=== PATIENT | male | born 1960 | race Caucasian/White ===

== ENCOUNTER 2016-05-02 10:01 | Day surgery (SDC) | payer BC ==
[~2016-05-02 10:01] MED LIST: ACETAMINOPHEN 500 MG TABLET PO PRN; HYDROmorphone HCL 2 MG/ML VIAL IV PRN; MAG HYDROX/ALUMINUM HYD/SIMETH 30 ML UDC PO PRN; MAGNESIUM HYDROXIDE 30 ML UDC PO PRN; ONDANSETRON HCL/PF 2 MG/ML VIAL IV PRN; PROMETHAZINE HCL 25 MG in DEXTROSE 5 % IN WATER 50 ML IV PRN; RINGERS SOLUTION,LACTATED 1,000 ML IV PRN; ZOLPIDEM TARTRATE 5 MG TABLET PO PRN; ceFAZolin SODIUM 1 GM VIAL IV PRN; diphenhydrAMINE HCL 50 MG/ML VIAL IV PRN; oxyCODONE HCL/ACETAMINOPHEN 1 TAB TABLET PO PRN
--- OUTSIDE RECORDS SUMMARY | 2016-05-02 10:06 | XMS REPORT | Continuity of Care Document ---
:1960 Author Organization [facility] ([facility]) Address [address] [place] [address] Phone [phone] Care Team Providers Name Role Phone Niko Stewart Primary Care Provider [phone] Source Comments This disclosure is being made pursuant to the Care Everywhere program, applicable federal and state laws, and may not contain all informaitonavailable regarding this patient.[facility] ([facility]) Active Allergies and Adverse Reactions Allergen Noted Date Severity Reactions Comments Codeine 04/10/2011 Nausea & Vomiting Penicillin G 04/10/2011 Rash Current Medications Prescription Sig. Disp. Refills Start Date End Date Status multivitamin tablet Take 1 Tab by Active mouth daily. atorvastatin (LIPITOR) Take 20 mg by Active 20 mg tablet mouth every evening. metoPROLol succinate Take 100 mg by Active 100 mg XL tablet mouth daily. calcium carbonate (500 Take 1 Tab by Active mg Ca) 1250 mg mouth daily. -vitamin D 200 unit per tablet gabapentin 300 mg Take 300 mg by Active capsule mouth 3 times daily. traMADol 50 mg tablet Take 1 Tab by 80 Tab 1 10/17/2013 Active mouth every 6 hours as needed for Pain. Indications: PAIN amLODIPine 5 mg tablet Take 5 mg by Active mouth daily. acyclovir 200 mg Take 200 mg by Active capsule mouth as needed. VIAGRA 100 mg tablet Take 100 mg by 2 01/26/2016 Active mouth as needed. SUPREP 17.5-3.13-1.6 take as directed 0 2016 Active gram oral solution for 1 day celecoxib 100 mg Take 1 capsule 60 capsule 1 01/30/2016 Active capsule (100 mg total) by mouth 2 times daily. 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
[2016-05-02] MEDS ORDERED: RINGERS SOLUTION,LACTATED 1,000 ML IV ONE (10:35)
[2016-05-02] MEDS ORDERED: BUPIVACAINE HCL 50 ML VIAL IJ ONE (11:22)
[2016-05-02 14:57] VITALS: BP 130/76
[2016-05-02] MEDS ORDERED: SENNOSIDES/DOCUSATE SODIUM 1 TAB TABLET PO SCH (21:00)
== END 2016-05-02 10:02 | disposition home or self-care (01) ==
LOC: AMB 10:01
PROVIDERS: ATTEND Orthopaedic Surgery
PROC: 0QBN0ZZ Excision of Right Metatarsal, Open Approach (ICD-10-PCS; principal; 2016-05-02 11:35)
DX: M21.621 Bunionette of right foot (principal); I10 Essential (primary) hypertension; E78.5 Hyperlipidemia, unspecified; Z87.891 Personal history of nicotine dependence; Z68.33 Body mass index [BMI] 33.0-33.9, adult

== ENCOUNTER 2016-05-02 23:00 | Emergency (ER) | payer BC ==
--- NOTE | 2016-05-03 00:31 | ERNOTE ---
Allergy Symptoms - ER Date of Service: 05/02/16 Presenting Symptoms: other - nausea Time Seen by Provider: 05/03/16 00:30 Source: patient Exam Limitations: no limitations Immunizations: IMMUNIZATION HX History of Influenza Vaccine No Hx Pneumococcal Vaccination No Allergies/Adverse Reactions: Allergies penicillin G Allergy (Mild, Verified 05/02/16 23:34) RASH sulfamethoxazole [From Bactrim] Allergy (Mild, Verified 05/02/16 23:34) GI UPSET, RASH, ESCOBAR trimethoprim [From Bactrim] Allergy (Mild, Verified 05/02/16 23:34) GI UPSET, RASH, ESCOBAR codeine Adverse Reaction (Mild, Verified 05/02/16 23:34) Nausea Home Medications: HOME MEDICATIONS Calcium Carbonate/Vitamin D3 [Calcium 600 + Vit D 400 Tablet] 1 each PO BID [Last Taken Unknown] Gabapentin [Neurontin] 300 mg PO TID 01/30/16 [Last Taken Unknown] Metoprolol Succinate [Toprol Xl] 100 mg PO DAILY 01/30/16 [Last Taken Unknown] Multivitamins [Multivitamin Ashley] 1 cap PO DAILY 01/30/16 [Last Taken Unknown] Sildenafil Citrate [Viagra] 100 mg PO DAILY PRN 01/30/16 [Last Taken Unknown] amLODIPine BESYLATE [Norvasc] 5 mg PO DAILY 01/30/16 [Last Taken Unknown] traMADol HCL [Ultram] 50 mg PO TID PRN 01/30/16 [Last Taken Unknown] Acyclovir [Zovirax] 200 mg PO PRN 02/13/16 [Last Taken Unknown] Atorvastatin Calcium [Lipitor] 20 mg PO DAILY 04/25/16 [Last Taken Unknown] Celecoxib [Celebrex] 100 mg PO BID 04/25/16 [Last Taken Unknown] Oxycodone HCl/Acetaminophen [Percocet 5-325 mg Tablet] 1 each PO Q4H PRN [Last Taken 05/02/16 16:00 2 tab] - Pain Score Pain Score #1 Pain Score: 0 - History of Present Illness Narrative: Pt presents with c/o nausea and nervousness after taking 2 doses of 2 tablets of hydrocodone for post op right foot pain. Pt states he thinks he developed an allergic reaction. Review of Systems - Review of Systems Constitutional: Present: See HPI, diaphoresis. Absent: fever, chills, weakness , fatigue, malaise EYE: Present: no symptoms reported ENT: Present: no symptoms reported Respiratory: Present: no symptoms reported. Absent: shortness of breath, cough , wheezing Cardiology: Present: no symptoms reported Gastrointestinal/Abdominal: Present: no symptoms reported Genitourinary: Present: no symptoms reported Musculoskeletal: Present: no symptoms reported Neurological: Present: no symptoms reported Endocrine: Present: no symptoms reported Hematologic/Lymphatic: Present: no symptoms reported Psych: Present: no symptoms reported - Patient's Past Medical History Patient History - Medical: Other Patient History - Cardiac/Respiratory: Hypertension, Hyperlipidemia Patient History - Cancer: Skin, Surgical Treatment Patient History - Surgical Procedures: Total Hip Replacement, Total Knee Replacement, T & A, Other Patient History - Other: None - Family History Brother Family History - Medical: No pertinent hx, Other Family History - Cardiac/Respiratory: Hyperlipidemia Family History - Cancer: No pertinent family hx Father Family History - Medical: No pertinent hx, Other Family History - Cardiac/Respiratory: Hyperlipidemia, Other Family History - Cancer: No pertinent family hx Grandfather-Paternal Family History - Medical: , No pertinent hx Family History - Cardiac/Respiratory: CVA/Stroke Family History - Cancer: No pertinent family hx Mother Family History - Medical: , Other Family History - Cardiac/Respiratory: No pertinent hx Family History - Cancer: Stomach Sister Family History - Medical: No pertinent hx, Other Family History - Cardiac/Respiratory: No pertinent hx Family History - Cancer: No pertinent family hx - Social History Living Situations: home Abuse History: No History of abuse Psych History: No pertinent hx Smoking Status: Former smoker Do you dip or chew tobacco: No Alcohol Use: occasionally Drug Use: none - Immunizations Hx Pneumococcal Vaccination: No History of Influenza Vaccine: No Physical Exam - Physical Exam General Appearance: Present: wd/wn, alert, no apparent distress, other - anxious Ears, Nose, Throat: Present: normal ENT inspection, hearing grossly normal Neck: Present: normal inspection, nontender. Absent: lymphadenopathy (R), lymphadenopathy (L) Respiratory: Present: no respiratory distress, normal breath sounds, no accessory muscle use, chest nontender, lungs clear Cardiovascular/Chest: Present: regular rate, rhythm, no murmur, normal peripheral pulses Gastrointestinal/Abdominal: Present: normal bowel sounds, nontender, nondistended, soft, no organomegaly Neurological Exam: Present: alert, oriented Skin Exam: Present: normal color, warm/dry, diaphoresis. Absent: skin rash ED Progress - Vital Signs Patient's Vital Signs:: I have reviewed the patient's vital signs. Vital Signs: Vital Signs 05/02/16 23:29 Temperature 36.6 C Pulse Rate 76 Respiratory 18 Rate Blood Pressure 174/80 O2 Sat by Pulse 97 Oximetry - Progress/Reassessment Chief Complaint: Allergic Reaction Progress:: Improved Departure Clinical Impression: Adverse reaction to drug - Departure Disposition: Home self-care Condition: Good Instructions: Basics of Medicine Management
[2016-05-03] MEDS ORDERED: LORazepam 1 MG TABLET PO ONE (00:35)
[2016-05-03] MEDS ORDERED: LORazepam 1 MG TABLET ONE (00:48)
[2016-05-03 00:49] LABS: Hematocrit 43.8 % (42.0-52.0); Hemoglobin 14.9 gm/dL (13.5-18.0); Mean Cell Volume 90.5 fl (78-100); Mean Corpuscular Hemoglobin 30.8 pg (27-31); Mean Platelet Volume 8.7 fl (6.0-9.5); Neutrophil # 3.6 K/mm3 (1.3-6.0); Platelet Count 135 K/mm3 (150-450); Red Blood Count 4.84 M/mm3 (4.7-6.0); Red Cell Distribution Width 13.9 % (11.5-14.0); White Blood Count 5.4 K/mm3 (4.0-10.5)
[2016-05-03 01:07] LABS: Anion Gap 14.5 mmol/L (6.8-13.8); BUN/Creatinine Ratio 16.7 (9.0-21.6); Blood Urea Nitrogen 10 mg/dL (6-23); Calcium * 9.2 mg/dL (7.9-10.9); Carbon Dioxide 26.2 mmol/L (24-32.6); Chloride 99 mmol/L (97-106); Estimated Creat Clear 138.6; Glucose * 109 mg/dL (70-110); Potassium 3.7 mmol/L (3.4-4.6); Sodium 136 mmol/L (132-142)
[2016-05-03 01:08] LABS: Troponin I Less than 0.017 ng/ml (0.00-0.10)
--- OUTSIDE RECORDS SUMMARY | 2016-05-03 01:08 | XMS REPORT | Continuity of Care Document ---
:1960 Author Organization [facility] ([facility]) Address [address] [place] [address] Phone [phone] Care Team Providers Name Role Phone Niko Stewart Primary Care Provider [phone] Source Comments This disclosure is being made pursuant to the Care Everywhere program, applicable federal and state laws, and may not contain all informaitonavailable regarding this patient.[facility] ([facility]) Active Allergies and Adverse Reactions Allergen [...] Specialty Providers Description 02/12/2016 Telephone Orthopaedic Colin Bautsita MD 02/11/2016 Telephone Orthopaedic Rosita Caruso ARNP [...] 1.803 m (5' 11") 01/30/2016 8: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
[2016-05-03 02:41] VITALS: BP 140/78
== END 2016-05-03 02:40 | disposition home or self-care (01) ==
LOC: ER 23:00
DX: R11.2 Nausea with vomiting, unspecified (principal); T40.2X5A Adverse effect of other opioids, initial encounter; Z87.891 Personal history of nicotine dependence

== ENCOUNTER 2020-01-31 16:38 | Observation (INO) ==
[2020-01-31 17:49] LABS: Hemoglobin 13.1 gm/dL (13.5-18.0); Mean Corpuscular Hemoglobin 33.4 pg (27-31); Mean Corpuscular Hgb Conc 32.8 g/dl (32-36); Mean Platelet Volume 11.6 fl (8-11.3); Neutrophil # 5.4 K/mm3 (1.3-6.0); Neutrophil % 65.9 % (42-75.0); Platelet Count 212 K/mm3 (150-450); Red Blood Count 3.92 M/mm3 (4.7-6.0); Red Cell Distribution Width 13.2 % (11.5-14.0); White Blood Count 8.2 K/mm3 (4.0-10.5)
[2020-01-31 17:57] LABS: ALT 59 U/L (19-67); AST 104 U/L (0-48); Alkaline Phosphatase * 133 U/L (50-170); Anion Gap 11.3 mmol/L (6.8-13.8); BUN/Creatinine Ratio 6.3 (9.0-21.6); Bilirubin, Total 2.3 mg/dL (0.0-1.1); Blood Urea Nitrogen 5 mg/dL (6-23); Ca. Corrected For Albumin 9.4 mg/dL (8.4-10.2); Calcium * 8.9 mg/dL (7.9-10.9); Carbon Dioxide 27.9 mmol/L (24-32.6); Chloride 96 mmol/L (97-106); Glucose * 104 mg/dL (70-110); Potassium 3.2 mmol/L (3.4-4.6); Sodium 132 mmol/L (132-142); Total Protein 7.4 gm/dL (6.2-8.2)
[2020-01-31] MEDS ORDERED: NORMAL SALINE 1,000 ML IV ONE (18:22)
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
[2020-01-31 18:42] LABS: Urine Bilirubin 3 mg/dl (NEGATIVE); Urine Blood Negative /ul (NEGATIVE); Urine Ketone Negative (NEGATIVE); Urine Nitrite Negative (NEGATIVE); Urine Protein Negative (NEGATIVE); Urine Urobilinogen >=8.0 EU/dl (NORMAL); Urine pH 6.5 pH (5.0-7.0)
[2020-01-31 19:18] LABS: Urine Barbiturate Negative (NEGATIVE); Urine Benzodiazepines Negative (NEGATIVE); Urine Opiates Negative (NEGATIVE); Urine PCP Negative (NEGATIVE); Urine THC Negative (NEGATIVE)
[2020-01-31 19:26] LABS: Urine Appearance Clear (CLEAR); Urine Bacteria 1+; Urine Color Amber; Urine Mucus Few - 1+; Urine RBC TRACE /hpf (0-5); Urine WBC 0-5 /hpf (0-5)
[2020-01-31 19:27] LABS: Cocaine Ur Negative (NEGATIVE)
[2020-01-31 19:40] LABS: Amylase * 175 U/L (25-115); Lipase 148 U/L (73-393)
[2020-01-31] MEDS: NORMAL SALINE 1,000 ML IV PRN (20:40)
[2020-02-01] MEDS: NORMAL SALINE 1,000 ML IV PRN (04:35)
--- NOTE | 2020-02-01 09:00 | HP ---
Chief Complaint - Chief Complaint Date of Service: 02/01/20 Time of Service: 08:49 Chief Complaint: Falls, weakness, balance problems History of Present Illness: Stephan is a 60 yo male that presented to the [facility] ER after a fall and pain in has hands after the fall. He reports frequent falls over the past month. He is unsure the cause and reports his legs get weak and he loses balance. He denies vertigo. He reports history of drinking but stopped a month ago. He denies tremors. He denies confusion this morning, although there are reports that he was confused in the ER and not able to answer direct questions. This morning he feels at his baseline. Medical History (Last Reviewed 01/31/20 @ 21:04 by Jazmin Morfin RN) Lumbar disc disease (Chronic) Onset Date: Unknown Hypertension (Chronic) Onset Date: Unknown Hyperlipidemia (Chronic) Onset Date: Unknown Shoulder pain, right Onset Date: ~2017 Back pain Onset Date: ~2009 Degenerative joint disease of knee, right Onset Date: Unknown Urinary retention Onset Date: ~2011 Surgical History: Surgical History (Last Reviewed 01/31/20 @ 21:05 by Jazmin Morfin RN) H/O arthroscopic knee surgery Onset Date: ~1979 right H/O colonoscopy Onset Date: ~12/2015 Dr Lopez-serrated adenoma, hyperplastic polyp. Recheck in 3 years. H/O repair of rotator cuff Onset Date: ~2003 Dr Jaimes-left H/O toe surgery Onset Date: ~2016 Dr Daniel-right 5th toe cheilectomy H/O total hip arthroplasty Onset Date: Unknown 2001-Dr Torrez-left 2013-Dr Gongora at [facility]-Right H/O wisdom tooth extraction Onset Date: Unknown History of carpal tunnel release Onset Date: Unknown right History of incision and drainage Onset Date: ~2012 Dr Good-abscess left mid back History of tonsillectomy Onset Date: Unknown S/P epidural steroid injection Onset Date: ~2012 2011 L5-S1 2013 C6-C7 Family History: Family History (Last Reviewed 01/31/20 @ 21:05 by Jazmin Morfin RN) Father Hyperlipemia H/O partial resection of colon Brother Hyperlipemia Mother Cancer H/O partial resection of colon Grandfather CVA (cerebral vascular accident) Social History: (Last Reviewed 01/31/20 @ 21:05 by Jazmin Morfin RN) Social History: adopted: No foster care: No correction: No Marital status: Single lives independently: Yes household members: none caregiver/support person: No current occupational status: retired Highest level of school completed/degree received: high school graduate Service: No Tobacco: Smoking Status: Never smoker Alcohol: alcohol intake: former alcohol intake frequency: a few times a week Substance Use: substance use type: does not use Dietary Habits: caffeine: Yes caffeine comment: somedays Type: carbonated beverages Review Of Systems (GEN) - Review of Systems Generalized/Overall Review: Present: Weakness. Absent: Chills, Fever EENTM: Present: No Symptoms Reported Respiratory: Absent: Cough, Shortness of Breath Cardiac: Absent: Chest Pain, Edema, Palpitations Abdominal: Absent: Nausea, Vomiting Genitourinary: Absent: Burning, Frequency Musculoskeletal: Present: Joint Pain Neurological: Present: Weakness, Other - balance difficulty Skin: Present: No Symptoms Reported Immunizations: IMMUNIZATION HX Immunizations Up to Date Yes History of Influenza Vaccine Yes Hx Pneumococcal Vaccination No Allergies/Adverse Reactions: Allergies Allergy/AdvReac Type Severity Reaction Status Date / Time penicillin G Allergy Mild RASH Verified 01/31/20 21:05 sulfamethoxazole Allergy Mild GI UPSET, Verified 01/31/20 21:05 [From Bactrim] RASH, ESCOBAR codeine AdvReac Mild Nausea Verified 01/31/20 21:05 Home Medications: HOME MEDICATIONS Multivitamins [Multivitamin Ashley] 1 cap PO DAILY 01/30/16 [Last Taken Unknown] Acyclovir [Zovirax] 200 mg PO PRN 02/13/16 [Last Taken Unknown] amlodipine 5 mg tablet 5 mg PO DAILY #90 tab 08/24/18 [Last Taken Unknown] atorvastatin 20 mg tablet 20 mg PO DAILY #90 tab 08/24/18 [Last Taken Unknown] diclofenac sodium 50 mg tablet,delayed release 50 mg PO BID #60 tab 08/24/18 [Last Taken Unknown] gabapentin 300 mg capsule 300 mg PO TID #90 cap 08/24/18 [Last Taken Unknown] metoprolol succinate 100 mg tablet,extended release 24 hr 100 mg PO DAILY #90 tab 08/24/18 [Last Taken Unknown] sildenafil 100 mg tablet 100 mg PO DAILY PRN #10 tab 08/24/18 [Last Taken Unknown] azelastine 0.05 % eye drops 1 drp OP BID PRN #6 ml 12/02/18 [Last Taken Unknown] Exam - Exam Vital Signs: Vital Signs - Last Taken Temp 36.7 C 02/01/20 06:23 Pulse 84 02/01/20 06:23 Resp 20 02/01/20 06:23 BP 143/86 02/01/20 06:23 Pulse Ox 95 02/01/20 06:23 Constitutional: Present: Alert, Oriented x3, Cooperative, No distress ENT Exam: Present: hearing grossly normal Eye Exam: bilateral eye: normal inspection Respiratory: Present: lungs clear, normal breath sounds Cardiovascular/Chest: Present: regular rate, rhythm, no chest tenderness Peripheral Pulses: radial (R): 2+, radial (L): 2+ Abdomen: Present: Normal bowel sounds, soft, nontender, nondistended Skin Exam: Present: normal color, warm/dry, no cyanosis Neurologic: Present: fire medic II-XII nml as tested, no motor/sensory deficits, alert, normal mood/affect, oriented x 3 Appearance: Present: appropriate appearance, appropriate insight Eye contact: Present: cooperative, good eye contact, normal speech Thoughts: Present: normal thought pattern, no apparent hallucination Diagnostic Studies: Abnormal Lab Results 01/31/20 01/31/20 01/31/20 Range/Units 17:36 17:36 17:36 RBC 3.92 L (4.7-6.0) M/mm3 Hgb 13.1 L (13.5-18.0) gm/dL Hct 40.0 L (42.0-52.0) % MCV 102.0 H (78-100) fl MCH 33.4 H (27-31) pg MPV 11.6 H (8-11.3) fl Monocytes % 10.0 H (0.0-9) % Basophils % 1.7 H (0.0-1.0) % Potassium 3.2 L (3.4-4.6) mmol/L Chloride 96 L (97-106) mmol/L BUN 5 L (6-23) mg/dL BUN/Creatinine Ratio 6.3 L (9.0-21.6) Lactic Acid, Venous 3.7 H* (0.4-2.0) mmol/L Total Bilirubin 2.3 H (0.0-1.1) mg/dL AST 104 H (0-48) U/L Albumin 3.0 L (3.4-5.0) gm/dl Amylase (25-115) U/L Urine Bilirubin (NEGATIVE) mg/dl Urine Ictotest (NEGATIVE) Urine Urobilinogen (NORMAL) EU/dl Urine Bacteria (NONE) Urine Mucus (NONE) 01/31/20 01/31/20 01/31/20 Range/Units 17:36 18:30 20:30 RBC (4.7-6.0) M/mm3 Hgb (13.5-18.0) gm/dL Hct (42.0-52.0) % MCV (78-100) fl MCH (27-31) pg MPV (8-11.3) fl Monocytes % (0.0-9) % Basophils % (0.0-1.0) % Potassium (3.4-4.6) mmol/L Chloride (97-106) mmol/L BUN (6-23) mg/dL BUN/Creatinine Ratio (9.0-21.6) Lactic Acid, Venous 2.5 H* (0.4-2.0) mmol/L Total Bilirubin (0.0-1.1) mg/dL AST (0-48) U/L Albumin (3.4-5.0) gm/dl Amylase 175 H (25-115) U/L Urine Bilirubin 3 H (NEGATIVE) mg/dl Urine Ictotest Positive H (NEGATIVE) Urine Urobilinogen >=8.0 H (NORMAL) EU/dl Urine Bacteria 1+ H (NONE) Urine Mucus Few - 1+ H (NONE) Laboratory Results WBC 8.2 K/mm3 (4.0-10.5) 01/31/20 17:36 RBC 3.92 M/mm3 (4.7-6.0) L 01/31/20 17:36 Hgb 13.1 gm/dL (13.5-18.0) L 01/31/20 17:36 Hct 40.0 % (42.0-52.0) L 01/31/20 17:36 MCV 102.0 fl (78-100) H 01/31/20 17:36 MCH 33.4 pg (27-31) H 01/31/20 17:36 MCHC 32.8 g/dl (32-36) 01/31/20 17:36 RDW 13.2 % (11.5-14.0) 01/31/20 17:36 Plt Count 212 K/mm3 (150-450) 01/31/20 17:36 MPV 11.6 fl (8-11.3) H 01/31/20 17:36 Immature Gran % (Auto) 0.40 % (0.001-0.429) 01/31/20 17:36 Immature Gran # (Auto) 0.03 K/mm3 (0.000-0.0310) 01/31/20 17:36 Neutrophils % 65.9 % (42-75.0) 01/31/20 17:36 Lymphocytes % 21.5 % (20-51) 01/31/20 17:36 Monocytes % 10.0 % (0.0-9) H 01/31/20 17:36 Eosinophils % 0.5 % (0.0-3.0) 01/31/20 17:36 Basophils % 1.7 % (0.0-1.0) H 01/31/20 17:36 Nucleated RBC % 0.0 k/mm3 (0-1) 01/31/20 17:36 Neutrophils # 5.4 K/mm3 (1.3-6.0) 01/31/20 17:36 Lymphocytes # 1.77 k/mm3 (1.5-3.5) 01/31/20 17:36 Monocytes # 0.8 k/mm3 (0.0-1.0) 01/31/20 17:36 Eosinophils # 0.0 k/mm3 (0.0-0.7) 01/31/20 17:36 Absolute Basophils 0.1 k/mm3 (0.0-0.1) 01/31/20 17:36 Sodium 132 mmol/L (132-142) 01/31/20 17:36 Plasma Sodium 132 mmol/L (130-142) 01/31/20 17:36 Potassium 3.2 mmol/L (3.4-4.6) L 01/31/20 17:36 Chloride 96 mmol/L (97-106) L 01/31/20 17:36 Carbon Dioxide 27.9 mmol/L (24-32.6) 01/31/20 17:36 Anion Gap 11.3 mmol/L (6.8-13.8) 01/31/20 17:36 BUN 5 mg/dL (6-23) L 01/31/20 17:36 Creatinine 0.79 mg/dL (0.4-1.4) 01/31/20 17:36 Est GFR (Non-Af Amer) 106 mL/min (60-130) 01/31/20 17:36 BUN/Creatinine Ratio 6.3 (9.0-21.6) L 01/31/20 17:36 Random Glucose 104 mg/dL (70-110) 01/31/20 17:36 Lactic Acid, Venous 2.5 mmol/L (0.4-2.0) H* 01/31/20 20:30 Calcium 8.9 mg/dL (7.9-10.9) 01/31/20 17:36 Calcium Adj for Albumin 9.4 mg/dL (8.4-10.2) 01/31/20 17:36 Total Bilirubin 2.3 mg/dL (0.0-1.1) H 01/31/20 17:36 AST 104 U/L (0-48) H 01/31/20 17:36 ALT 59 U/L (19-67) 01/31/20 17:36 Alkaline Phosphatase 133 U/L (50-170) 01/31/20 17:36 Ammonia Less than 17.0 mcmol/L (11-35) 01/31/20 20:30 Total Protein 7.4 gm/dL (6.2-8.2) 01/31/20 17:36 Albumin 3.0 gm/dl (3.4-5.0) L 01/31/20 17:36 Amylase 175 U/L (25-115) H 01/31/20 17:36 Lipase 148 U/L (73-393) 01/31/20 17:36 Urine Color Farideh 01/31/20 18:30 Urine Appearance Clear (CLEAR) 01/31/20 18:30 Urine pH 6.5 pH (5.0-7.0) 01/31/20 18:30 Ur Specific [place] 1.010 SP.GR. (1.005-1.030) 01/31/20 18:30 Urine Protein Negative mg/dL (NEGATIVE) 01/31/20 18:30 Urine Glucose (UA) Negative mg/dL (NEGATIVE) 01/31/20 18:30 Urine Ketones Negative mg/dL (NEGATIVE) 01/31/20 18:30 Urine Blood Negative /ul (NEGATIVE) 01/31/20 18:30 Urine Nitrate Negative (NEGATIVE) 01/31/20 18:30 Urine Bilirubin 3 mg/dl (NEGATIVE) H 01/31/20 18:30 Urine Ictotest Positive (NEGATIVE) H 01/31/20 18:30 Urine Urobilinogen >=8.0 EU/dl (NORMAL) H 01/31/20 18:30 Ur Leukocyte Esterase Negative /ul (NEGATIVE) 01/31/20 18:30 Urine RBC Trace /hpf (0-5) 01/31/20 18:30 Urine WBC 0-5 /hpf (0-5) 01/31/20 18:30 Ur Epithelial Cells 0-5 /hpf (0-5) 01/31/20 18:30 Urine Bacteria 1+ (NONE) H 01/31/20 18:30 Urine Mucus Few - 1+ (NONE) H 01/31/20 18:30 Urine Culture Comments No culture indicated 01/31/20 18:30 Urine Opiates Screen Negative (NEGATIVE) 01/31/20 18:30 Barbiturate Screen Negative (NEGATIVE) 01/31/20 18:30 Ur Phencyclidine Scrn Negative (NEGATIVE) 01/31/20 18:30 Urine Amphetamine Negative (NEGATIVE) 01/31/20 18:30 U Benzodiazepines Scrn Negative (NEGATIVE) 01/31/20 18:30 Urine Cocaine Screen Negative (NEGATIVE) 01/31/20 18:30 Urine Marijuana (THC) Negative (NEGATIVE) 01/31/20 18:30 Ethyl Alcohol Less than 3.0 mg/dL (0.0-10.0) 01/31/20 17:36 SARS-CoV-2 (PCR) Not detected (NotDetected) 01/31/20 18:55 Assessment/Plan - Narrative Narrative: Stephan is a 60 yo male who presented with altered mentation, weakness, and balance difficulty. Unclear etiology. Head CT was negative. Labs were unremarkable with the exception of elevated lactate. No source of infection present, no fever, and no leukocytosis. He has a history of alcohol but has been sober for over a month. This morning he appears to have mentation that is at his baseline. Will consult PT to evaluate his gait and balance. Will evaluate with Brain MRI to investigate his weakness, balance difficulty, and episode of alt ered mentation. He will be admitted to observation at this time. If cleared by PT and brain MRI ok he may be able to be discharged later today. - Assessment/Plan (1) Altered mental status Problem: Resolved Qualifiers: Altered mental status type: disorientation Qualified Code(s): R41.0 - D isorientation, unspecified (2) Lactic acidosis Problem: Acute (3) Frequent falls Problem: Acute
--- NOTE | 2020-02-01 16:36 | DS ---
(1) Altered mental status Problem: Resolved Qualifiers: Altered mental status type: disorientation Qualified Code(s): R41.0 - Disorientation, unspecified (2) Frequent falls Problem: Acute (3) Lower extremity weakness Problem: Acute Qualifiers: Laterality: bilateral Qualified Code(s): R29.898 - Other symptoms and signs involving the musculoskeletal system (4) Balance problem Problem: Acute Date of Discharge:: 02/01/20 Hospital Course: Stephan is a 60 yo male that presented with frequent falls, lower extremity weakness, and confusion. The confusion resolved overnight. He was evaluated with labs, head CT, and brain MRI. Imaging of the head showed possible normal pressure hydrocephalus, but this could also just be from atrophy. There is no evidence of infection. Today he has normal mentation. He was evaluated by PT who recommend outpatient PT and the use of a walker. He was give a walker at discharge. He will follow up with his primary care provider in 1-2 weeks. I would not recommend therapeutic lumbar puncture for hydrocephalus at this point, but if therapy does not help and he continues to have episodes of confusion and gait difficulty it could be considered. Procedures Performed: none Results and Findings: Lab Pending Results 01/31/20 17:36: WBC 8.2, RBC 3.92 L, Hgb 13.1 L, Hct 40.0 L, MCV 102.0 H, MCH 33.4 H, MCHC 32.8, RDW 13.2, Plt Count 212, MPV 11.6 H, Immature Gran % (Auto) 0.40, Immature Gran # (Auto) 0.03, Neutrophils % 65.9, Lymphocytes % 21.5, Monocytes % 10.0 H, Eosinophils % 0.5, Basophils % 1.7 H, Nucleated RBC % 0.0, Neutrophils # 5.4, Lymphocytes # 1.77, Monocytes # 0.8, Eosinophils # 0.0, Absolute Basophils 0.1 01/31/20 17:36: Sodium 132, Plasma Sodium 132, Potassium 3.2 L, Chloride 96 L, Carbon Dioxide 27.9, Anion Gap 11.3, BUN 5 L, Creatinine 0.79, Est GFR (Non-Af Amer) 106, BUN/Creatinine Ratio 6.3 L, Random Glucose 104, Calcium 8.9, Calcium Adj for Albumin 9.4, Total Bilirubin 2.3 H, AST 104 H, ALT 59, Alkaline Phosphatase 133, Total Protein 7.4, Albumin 3.0 L, Ethyl Alcohol Less than 3.0 01/31/20 17:36: Lactic Acid, Venous 3.7 H* 01/31/20 17:36: Amylase 175 H, Lipase 148 01/31/20 18:30: Urine Color Farideh, Urine Appearance Clear, Urine pH 6.5, Ur Specific [place] 1.010, Urine Protein Negative, Urine Glucose (UA) Negative, Urine Ketones Negative, Urine Blood Negative, Urine Nitrate Negative, Urine Bilirubin 3 H, Urine Ictotest Positive H, Urine Urobilinogen >=8.0 H, Ur Leukocyte Esterase Negative, Urine RBC Trace, Urine WBC 0-5, Ur Epithelial Cells 0-5, Urine Bacteria 1+ H, Urine Mucus Few - 1+ H, Urine Culture Comments No culture indicated 01/31/20 18:30: Urine Opiates Screen Negative, Barbiturate Screen Negative, Ur Phencyclidine Scrn Negative, Urine Amphetamine Negative, U Benzodiazepines Scrn Negative, Urine Cocaine Screen Negative, Urine Marijuana (THC) Negative 01/31/20 18:55: SARS-CoV-2 (PCR) Not detected 01/31/20 20:30: Lactic Acid, Venous 2.5 H* 01/31/20 20:30: Ammonia Less than 17.0 Discharge Location: Home Disposition: Home self-care Condition: Good Discharge Activity: Activity as tolerated Discharge Diet: General/regular food Referrals: Bethany Henson FNP [Primary Care Provider] - One Week Problem Oriented Discharge Instructions to Patient/Family: Deconditioning Complete Home Medications List: Complete Home Medication List: Multivitamins [Multivitamin Ashley] 1 cap PO DAILY 01/30/16 Acyclovir [Zovirax] 200 mg PO PRN 02/13/16 amlodipine 5 mg tablet 5 mg PO DAILY #90 tab 08/24/18 atorvastatin 20 mg tablet 20 mg PO DAILY #90 tab 08/24/18 diclofenac sodium 50 mg tablet,delayed release 50 mg PO BID #60 tab 08/24/18 gabapentin 300 mg capsule 300 mg PO TID #90 cap 08/24/18 metoprolol succinate 100 mg tablet,extended release 24 hr 100 mg PO DAILY #90 tab 08/24/18 sildenafil 100 mg tablet 100 mg PO DAILY PRN #10 tab 06/11/19 azelastine 0.05 % eye drops 1 drp OP BID PRN #6 ml 12/02/18
[2020-02-01 17:43] VITALS: BP 132/87
== END 2020-02-01 17:13 | disposition home or self-care (01) ==
LOC: MS 16:38 → ER 16:38 → MS 20:45
PROVIDERS: ADMIT Family Medicine; ATTEND Family Medicine

== ENCOUNTER 2020-07-22 15:17 | Inpatient (IN) ==
[2020-07-22] MEDS ORDERED: LORazepam 2 MG/ML DISP.SYRIN IV ONE ×2 (15:43→16:38)
[2020-07-22] MEDS ORDERED: MULTIVIT INFUSN,ADULT 4,VIT K 10 ML, THIAMINE HCL 100 MG in DEXTROSE 5 % IN WATER 1,000 ML IV SCH ×3 (15:45)
[2020-07-22] MEDS ORDERED: NORMAL SALINE 1,000 ML IV ONE ×3 (15:46→19:03)
[2020-07-22 16:06] LABS: Hematocrit 39.9 % (42.0-52.0); Hemoglobin 13.1 gm/dL (13.5-18.0); Mean Corpuscular Hemoglobin 32.5 pg (27-31); Mean Corpuscular Hgb Conc 32.8 g/dl (32-36); Mean Platelet Volume 11.6 fl (8-11.3); Neutrophil # 2.9 K/mm3 (1.3-6.0); Neutrophil % 68.2 % (42-75.0); Red Blood Count 4.03 M/mm3 (4.7-6.0); Red Cell Distribution Width 14.5 % (11.5-14.0); White Blood Count 4.3 K/mm3 (4.0-10.5)
[2020-07-22 16:24] LABS: Troponin I Less than 0.017 ng/mL (0.00-0.10)
[2020-07-22 16:26] LABS: ALT 43 U/L (19-67); AST 166 U/L (0-48); Albumin * 3.3 gm/dl (3.4-5.0); Alkaline Phosphatase * 229 U/L (50-170); Anion Gap 25.2 mmol/L (6.8-13.8); BUN/Creatinine Ratio 3.4 (9.0-21.6); Bilirubin, Total 5.1 mg/dL (0.0-1.1); Blood Urea Nitrogen 4 mg/dL (6-23); Ca. Corrected For Albumin 8.8 mg/dL (8.4-10.2); Calcium * 8.6 mg/dL (7.9-10.9); Carbon Dioxide 17.2 mmol/L (24-32.6); Chloride 96 mmol/L (97-106); Glucose * 109 mg/dL (70-110); Lipase 82 U/L (73-393); Magnesium 1.2 mg/dL (1.2-2.8); Potassium 3.4 mmol/L (3.4-4.6); Prothrombin Time (Patient) 16.4 Seconds (9.1-10.7); Sodium 135 mmol/L (132-142); TSH * 9.282 uIU/mL (0.358-3.74); Total Protein 8.5 gm/dL (6.2-8.2)
[2020-07-22 16:28] LABS: INR 1.61 INR (0.92-1.08); Partial Thrombolplastin Time 31.7 Seconds (24-32)
[2020-07-22 16:34] LABS: Platelet Count 22 K/mm3 (150-450)
[2020-07-22 18:23] LABS: Urine Bilirubin 3 mg/dl (NEGATIVE); Urine Ketone 5 mg/dL (NEGATIVE); Urine Protein 30 mg/dL (NEGATIVE); Urine Urobilinogen >=8.0 EU/dl (NORMAL); Urine pH 8.5 pH (5.0-7.0)
--- NOTE | 2020-07-22 18:30 | ERNOTE ---
Neuro HPI ER Record Date of Service: 07/22/20 Presenting Symptoms: weakness Time Seen by Provider: 07/22/20 15:22 Source: patient, EMS Exam Limitations: clinical condition Immunizations: IMMUNIZATION HX Immunizations Up to Date Yes History of Influenza Vaccine Yes Hx Pneumococcal Vaccination No Allergies/Adverse Reactions: Allergies Allergy/AdvReac Type Severity Reaction Status Date / Time penicillin G Allergy Mild RASH Verified 04/16/20 10:53 sulfamethoxazole Allergy Mild GI UPSET, Verified 04/16/20 10:53 [From Bactrim] RASH, ESCOBAR codeine AdvReac Mild Nausea Verified 04/16/20 10:53 Home Medications: HOME MEDICATIONS Multivitamins [Multivitamin Ashley] 1 cap PO DAILY 01/30/16 [Last Taken Unknown] amlodipine 5 mg tablet 5 mg PO DAILY #90 tab 08/24/18 [Last Taken Unknown] atorvastatin 20 mg tablet 20 mg PO DAILY #90 tab 08/24/18 [Last Taken Unknown] gabapentin 300 mg capsule 300 mg PO TID #90 cap 08/24/18 [Last Taken Unknown] metoprolol succinate 100 mg tablet,extended release 24 hr 100 mg PO DAILY #90 tab 08/24/18 [Last Taken Unknown] azelastine 0.05 % eye drops 1 drp OP BID PRN #6 ml 12/02/18 [Last Taken Unknown] Aspirin [Aspirin Chewable] 81 mg PO DAILY 07/22/20 [Last Taken Unknown] - History of Present Illness Narrative: Patient presents to the ED via EMS. Apparently he was having trouble getting into his truck, was noted to be weak and tremulous so EMS called. He seems somewhat confused and a good history is difficult to obtain. He stopped drinking 3 days ago and had been drinking daily, he is not very forthcoming about how much he was drinking prior to this. Clinically he has a syndrome c/w alcohol withdrawal. He has been having falls. Denies any pain. No vomiting. No CP or SOB, no abdominal pain. Onset: cannot confirm onset Severity: severe - Character of Deficits New weakness: Present: general (diffuse) Associated Symptoms: Reports: confused. Denies: chest pain, headache, seizure, decreased responsiveness Prior Treament: Denies: recently seen Review of Systems - Narrative Narrative: unable to obtain ROS in entirety due to patient condition - Review of Systems Respiratory: Absent: shortness of breath Cardiology: Absent: chest pain Gastrointestinal/Abdominal: Absent: abdominal pain Medical History (Last Reviewed 07/22/20 @ 18:22 by Catrachito Walsh MD) Post-traumatic osteoarthritis, left shoulder (Chronic) Possible rotator cuff pathology Fracture of metacarpal of right hand, closed (Acute) Lumbar disc disease (Chronic) Onset Date: Unknown Hypertension (Chronic) Onset Date: Unknown Hyperlipidemia (Chronic) Onset Date: Unknown Melanoma on chest Shoulder pain, right Onset Date: ~2017 Back pain Onset Date: ~2009 Degenerative joint disease of knee, right Onset Date: Unknown Urinary retention Onset Date: ~2011 Surgical History: Surgical History (Last Reviewed 07/22/20 @ 18:22 by Catrachito Walsh MD) History of arthroplasty of right knee H/O arthroscopic knee surgery Onset Date: ~1979 right H/O colonoscopy Onset Date: ~12/2015 Dr Lopez-serrated adenoma, hyperplastic polyp. Recheck in 3 years. H/O repair of rotator cuff Onset Date: ~2003 Dr Jaimes-left H/O toe surgery Onset Date: ~2016 Dr Daniel-right 5th toe cheilectomy H/O total hip arthroplasty Onset Date: Unknown 2001-Dr Torrez-left 2013-Dr Gongora at [facility]-Right H/O wisdom tooth extraction Onset Date: Unknown History of carpal tunnel release Onset Date: Unknown right History of incision and drainage Onset Date: ~2012 Dr Good-abscess left mid back History of tonsillectomy Onset Date: Unknown S/P epidural steroid injection Onset Date: ~2012 2011 L5-S1 2013 C6-C7 Family History: Family History (Last Reviewed 07/22/20 @ 18:22 by Catrachito Walsh MD) Father Hyperlipemia H/O partial resection of colon Brother Hyperlipemia Mother Cancer H/O partial resection of colon Grandfather CVA (cerebral vascular accident) Social History: (Last Reviewed 07/22/20 @ 18:23 by Catrachito Walsh MD) Social History: adopted: No foster care: No detention: No Marital status: Single lives independently: Yes household members: none caregiver/support person: No current occupational status: retired Highest level of school completed/degree received: high school graduate Service: No Tobacco: Smoking Status: Never smoker Alcohol: alcohol intake: former alcohol intake frequency: a few times a week Substance Use: substance use type: does not use Dietary Habits: caffeine: Yes caffeine comment: somedays Type: carbonated beverages Physical Exam - Physical Exam General Appearance: Present: alert, other - tremulous. Delia has completed CIWA and I agree, CIWA over 20. Head Exam: Present: normal inspection, no evidence of injury Eye Exam: Normal inspection: bilateral, PERRL: bilateral Ears, Nose, Throat: Present: dry mucous membranes. Absent: pharyngeal erythema Neck: Present: normal inspection, other - trachea midline Respiratory: Present: no respiratory distress, normal breath sounds, no accessory muscle use, lungs clear Cardiovascular/Chest: Present: normal peripheral pulses, tachycardia Gastrointestinal/Abdominal: Present: normal bowel sounds, nontender, soft Back Exam: Absent: CVA tenderness (R), CVA tenderness (L) Extremity Exam: Present: other - no tenderness or deformity Neurological Exam: Present: alert, no motor/sensory deficits, other - confused at times especially to past events. Not very forthcoming. No acute unilateral focal motor or sensory deficits. Skin Exam: Present: normal color, warm/dry Progress - Results and Orders Patient's Lab Results:: I have reviewed the patient's lab results. - Vital Signs Patient's Vital Signs:: I have reviewed the patient's vital signs. Vital Signs: Vital Signs 07/22/20 15:21 07/22/20 15:42 07/22/20 16:36 Pulse Rate 126 H 133 H 154 H Respiratory Rate 26 H 22 H Blood Pressure 120/78 141/79 O2 Sat by Pulse Oximetry 96 95 07/22/20 16:54 07/22/20 17:02 07/22/20 17:33 Pulse Rate 142 H 129 H 91 Respiratory Rate 15 17 17 Blood Pressure 107/77 125/71 154/81 H O2 Sat by Pulse Oximetry 92 L 95 96 - EKG EKG #1 EKG read: Interp. by me EKG Comments: Apparent sinus tachycardia rate 111. Non-specific ST/T wave changes, no STEMI noted. - X-Ray X-Ray #1 X-Ray: chest Interpretation: Interp. by me X-ray Comments: I personally reviewed CXR images as well as official radiology report - CT/Ultrasound CT/Ultrasound Narrative: I reviewed official radiology report for CT head. - Progress/Reassessment Chief Complaint: Altered Mental Status Progress Note-Subjective: 07/22/20 18:26 Patient given IV fluids, banana bag and repeated IV ativan. This helped his Sx significantly. He will need to be admitted to the hospital. I spoke with Dr Salinas who will admit. We discussed all labs/imaging/etc. He does have low platelets but no active bleeding. Elevated lactic acid likely from the withdrawal Sx, no other clear infectious source noted. Dr Salinas agreeable to admission. Patient agreeable and feels much improved. Departure Clinical Impression: Alcohol withdrawal syndrome, Thrombocytopenia, Elevated lactic acid level, Hyperbilirubinemia - Departure Disposition: Still a patient Condition: Fair
[2020-07-22 18:33] LABS: Cocaine Ur Negative (NEGATIVE); Urine Barbiturate Negative (NEGATIVE); Urine Benzodiazepines Negative (NEGATIVE); Urine Opiates Negative (NEGATIVE); Urine PCP Negative (NEGATIVE)
[2020-07-22 18:38] LABS: Urine Blood 10 /ul (NEGATIVE); Urine Color Dark Yellow; Urine Nitrite Positive (NEGATIVE)
[2020-07-22 18:39] LABS: Urine Appearance Slightly Cloudy (CLEAR); Urine Bacteria TRACE; Urine RBC 0-5 /hpf (0-5); Urine Renal Epithelial Cell Few - 1+ /hpf; Urine WBC 0-5 /hpf (0-5)
[2020-07-22 18:53] LABS: Urine THC Negative (NEGATIVE)
[2020-07-22] MEDS ORDERED: AZELASTINE HCL 0.05% EACHEYE PRN (21:59)
[2020-07-22] MEDS ORDERED: LORazepam 1 MG TABLET PO PRN (22:03)
--- NOTE | 2020-07-22 22:32 | HP ---
Chief Complaint - Chief Complaint Date of Service: 07/22/20 Time of Service: 22:19 Chief Complaint: I have been weak and confused and could not get in my car. History of Present Illness: 60-year-old male with past medical history of obesity, alcoholism, hypertension, hyperlipidemia, degenerative joint disease, and osteoarthritis was brought to the ER by EMS for worsening confusion and weakness detected earlier today when the patient attempted to get in his car. The patient has been abusing alcohol for multiple years and says he is attempted to quit drinking 3 days ago, since then he has not been feeling well and says he has not been able to walk straight and has been confused. The patient reports drinking hard liquor and beer as his go to alcohol beverages and says several years ago he successfully quit drinking only to resume the habit. Successive attempts at quitting have been more difficult. The patient lives alone has not been witnessed to have a seizure, however upon arriving to the ER he was noted to be tremulous and anxious and had to be treated with anxiolytics. Since then he has been more calm and relaxed but still remains tremulous. While in the ER work-up revealed severe thrombocytopenia most likely related to his chronic alcoholism, when asked the patient denies any knowledge or previous diagnosis of thrombocytopenia. There is no signs or symptoms of active bleeding at the moment. His bilirubin, alkaline phosphatase, as well as AST are also elevated. Of note the patient was found to have a significantly elevated TSH, it is not known if he has a history of hypothyroidism. Since arriving he has been treated with IV fluids including a banana bag and anxiolytics as stated before. Medical History (Last Reviewed 07/22/20 @ 20:13 by Johana Flores RN) Post-traumatic osteoarthritis, left shoulder (Chronic) Possible rotator cuff pathology Fracture of metacarpal of right hand, closed (Acute) Lumbar disc disease (Chronic) Onset Date: Unknown Hypertension (Chronic) Onset Date: Unknown Hyperlipidemia (Chronic) Onset Date: Unknown Melanoma on chest Shoulder pain, right Onset Date: ~2017 Back pain Onset Date: ~2009 Degenerative joint disease of knee, right Onset Date: Unknown Urinary retention Onset Date: ~2011 Surgical History: Surgical History (Last Reviewed 07/22/20 @ 20:14 by Johana Flores RN) History of arthroplasty of right knee H/O arthroscopic knee surgery Onset Date: ~1979 right H/O colonoscopy Onset Date: ~12/2015 Dr Lopez-serrated adenoma, hyperplastic polyp. Recheck in 3 years. H/O repair of rotator cuff Onset Date: ~2003 Dr Jaimes-left H/O toe surgery Onset Date: ~2016 Dr Daniel-right 5th toe cheilectomy H/O total hip arthroplasty Onset Date: Unknown 2001-Dr Torrze-left 2013-Dr Gongora at [facility]-Right H/O wisdom tooth extraction Onset Date: Unknown History of carpal tunnel release Onset Date: Unknown right History of incision and drainage Onset Date: ~2012 Dr Good-abscess left mid back History of tonsillectomy Onset Date: Unknown S/P epidural steroid injection Onset Date: ~2012 2011 L5-S1 2012 C6-C7 Family History: Family History (Last Reviewed 07/22/20 @ 20:14 by Johana Flores RN) Father Hyperlipemia H/O partial resection of colon Brother Hyperlipemia Mother Cancer H/O partial resection of colon Grandfather CVA (cerebral vascular accident) Social History: (Last Reviewed 07/22/20 @ 20:14 by Johana Flores RN) Social History: adopted: No foster care: No long-term: No Marital status: Single lives independently: Yes household members: none caregiver/support person: No current occupational status: retired Highest level of school completed/degree received: high school graduate Service: No Tobacco: Smoking Status: Never smoker Alcohol: alcohol intake: former alcohol intake frequency: a few times a week Substance Use: substance use type: does not use Dietary Habits: caffeine: Yes caffeine comment: somedays Type: carbonated beverages Peds Patient Hx - Developmental: No Pertinent Hx Peds Patient Hx - Medical: No Pertinent Hx Peds Patient Hx - Cardiac/Respiratory: No Pertinent Hx Peds Patient Hx - Surgical: No Surgical History Patient History - Cancer: No Hx of Cancer Review Of Systems (GEN) - Review of Systems Generalized/Overall Review: Present: Weakness EENTM: Present: No Symptoms Reported Respiratory: Present: No Symptoms Reported Cardiac: Present: No Symptoms Reported Abdominal: Present: No Symptoms Reported Genitourinary: Present: No Symptoms Reported Musculoskeletal: Present: No Symptoms Reported Neurological: Present: Anxiety, Tremors, Weakness, Pre-existing Deficit Skin: Present: No Symptoms Reported Endocrine: Present: No Symptoms Reported Immunizations: IMMUNIZATION HX Immunizations Up to Date Yes History of Influenza Vaccine Yes Hx Pneumococcal Vaccination No Allergies/Adverse Reactions: Allergies Allergy/AdvReac Type Severity Reaction Status Date / Time penicillin G Allergy Mild RASH Verified 04/16/20 10:53 sulfamethoxazole Allergy Mild GI UPSET, Verified 04/16/20 10:53 [From Bactrim] RASH, ESCOBAR codeine AdvReac Mild Nausea Verified 04/16/20 10:53 Home Medications: HOME MEDICATIONS Multivitamins [Multivitamin Ashley] 1 cap PO DAILY 01/30/16 [Last Taken Unknown] atorvastatin 20 mg tablet 20 mg PO DAILY #90 tab 08/24/18 [Last Taken 07/21/20] metoprolol succinate 100 mg tablet,extended release 24 hr 100 mg PO DAILY #90 tab 08/24/18 [Last Taken 07/21/20] azelastine 0.05 % eye drops 1 drp OP BID PRN #6 ml 12/02/18 [Last Taken Unknown] Aspirin [Aspirin Chewable] 81 mg PO DAILY 07/22/20 [Last Taken 07/22/20 09:00] Gabapentin 300 mg PO DAILY 07/22/20 [Last Taken 07/21/20] Exam - Exam Vital Signs: Vital Signs - Last Taken Temp 37.7 C 07/22/20 19: Pulse 103 H 07/22/20 19: Resp 20 07/22/20 19: BP 143/47 07/22/20 19: Pulse Ox 99 07/22/20 19:21 Constitutional: Present: Alert, Oriented x3, Cooperative, Well developed, No distress, Morbidly obese ENT Exam: Present: normal ENT inspection, hearing grossly normal Eye Exam: bilateral eye: normal inspection, PERRL, EOMI Neck: Present: non-tender, full range of motion, supple, normal inspection, trachea midline Back Exam: Present: normal inspection, no CVA tenderness, no vertebral tenderness Breasts: Present: Exam deferred, Nontender Respiratory: Present: chest non-tender, lungs clear, normal breath sounds, no respiratory distress, no accessory muscle use Cardiovascular/Chest: Present: normal peripheral pulses, regular rate, rhythm, no chest tenderness, no edema, no gallop, no JVD, no murmur, no rub Peripheral Pulses: dorsalis-pedis (R): 2+, dorsalis-pedis (L): 2+ Abdomen: Present: Normal bowel sounds, soft, nontender, nondistended, no rebound tenderness, no hepatospenomegaly, obese /Rectal: Present: Exam deferred Extremity: Present: normal range of motion, non-tender, normal inspection, no pedal edema, no calf tenderness, normal capillary refill Skin Exam: Present: normal color, warm/dry, no cyanosis Lymphatic: Present: no adenopathy Neurologic: Present: no motor/sensory deficits, alert, normal mood/affect, oriented x 3, dizzy/light-headedness, other - Patient has significant tremulousness Appearance: Present: appropriate appearance, appropriate insight, disheveled Eye contact: Present: cooperative, good eye contact, normal speech Thoughts: Present: normal thought pattern Diagnostic Studies: Abnormal Lab Results 07/22/20 07/22/20 07/22/20 Range/Units 15:58 15:58 15:58 RBC 4.03 L (4.7-6.0) M/mm3 Hgb 13.1 L (13.5-18.0) gm/dL Hct 39.9 L (42.0-52.0) % MCH 32.5 H (27-31) pg RDW 14.5 H (11.5-14.0) % Plt Count 22 L* D (150-450) K/mm3 MPV 11.6 H (8-11.3) fl Basophils % 1.2 H (0.0-1.0) % Lymphocytes # 0.92 L (1.5-3.5) k/mm3 PT (9.1-10.7) Seconds INR (Anticoag Therapy) (0.92-1.08) INR Chloride 96 L (97-106) mmol/L Carbon Dioxide 17.2 L (24-32.6) mmol/L Anion Gap 25.2 H (6.8-13.8) mmol/L BUN 4 L (6-23) mg/dL BUN/Creatinine Ratio 3.4 L (9.0-21.6) Lactic Acid, Venous 9.3 H* (0.4-2.0) mmol/L Total Bilirubin 5.1 H (0.0-1.1) mg/dL AST 166 H (0-48) U/L Alkaline Phosphatase 229 H (50-170) U/L Ammonia (11-35) mcmol/L Total Protein 8.5 H (6.2-8.2) gm/dL Albumin 3.3 L (3.4-5.0) gm/dl TSH 9.282 H (0.358-3.74) uIU/mL Urine Protein (NEGATIVE) mg/dL Urine Glucose (UA) (NEGATIVE) mg/dL Urine Blood (NEGATIVE) /ul Urine Nitrate (NEGATIVE) Urine Bilirubin (NEGATIVE) mg/dl Urine Urobilinogen (NORMAL) EU/dl Ur Epithelial Cells (0-5) /hpf Ur Renal Epithelial Cell (NONE) /hpf Acetaminophen Less than 0.2 L (10.0-30.0) mcg/mL 07/22/20 07/22/20 07/22/20 Range/Units 15:58 15:58 18:00 RBC (4.7-6.0) M/mm3 Hgb (13.5-18.0) gm/dL Hct (42.0-52.0) % MCH (27-31) pg RDW (11.5-14.0) % Plt Count (150-450) K/mm3 MPV (8-11.3) fl Basophils % (0.0-1.0) % Lymphocytes # (1.5-3.5) k/mm3 PT 16.4 H (9.1-10.7) Seconds INR (Anticoag Therapy) 1.61 H (0.92-1.08) INR Chloride (97-106) mmol/L Carbon Dioxide (24-32.6) mmol/L Anion Gap (6.8-13.8) mmol/L BUN (6-23) mg/dL BUN/Creatinine Ratio (9.0-21.6) Lactic Acid, Venous (0.4-2.0) mmol/L Total Bilirubin (0.0-1.1) mg/dL AST (0-48) U/L Alkaline Phosphatase (50-170) U/L Ammonia 48.0 H (11-35) mcmol/L Total Protein (6.2-8.2) gm/dL Albumin (3.4-5.0) gm/dl TSH (0.358-3.74) uIU/mL Urine Protein 30 H (NEGATIVE) mg/dL Urine Glucose (UA) 100 H (NEGATIVE) mg/dL Urine Blood 10 H (NEGATIVE) /ul Urine Nitrate Positive H (NEGATIVE) Urine Bilirubin 3 H (NEGATIVE) mg/dl Urine Urobilinogen >=8.0 H (NORMAL) EU/dl Ur Epithelial Cells 5-10 H (0-5) /hpf Ur Renal Epithelial Cell Few - 1+ H (NONE) /hpf Acetaminophen (10.0-30.0) mcg/mL 07/22/20 Range/Units 18:40 RBC (4.7-6.0) M/mm3 Hgb (13.5-18.0) gm/dL Hct (42.0-52.0) % MCH (27-31) pg RDW (11.5-14.0) % Plt Count (150-450) K/mm3 MPV (8-11.3) fl Basophils % (0.0-1.0) % Lymphocytes # (1.5-3.5) k/mm3 PT (9.1-10.7) Seconds INR (Anticoag Therapy) (0.92-1.08) INR Chloride (97-106) mmol/L Carbon Dioxide (24-32.6) mmol/L Anion Gap (6.8-13.8) mmol/L BUN (6-23) mg/dL BUN/Creatinine Ratio (9.0-21.6) Lactic Acid, Venous 2.6 H* (0.4-2.0) mmol/L Total Bilirubin (0.0-1.1) mg/dL AST (0-48) U/L Alkaline Phosphatase (50-170) U/L Ammonia (11-35) mcmol/L Total Protein (6.2-8.2) gm/dL Albumin (3.4-5.0) gm/dl TSH (0.358-3.74) uIU/mL Urine Protein (NEGATIVE) mg/dL Urine Glucose (UA) (NEGATIVE) mg/dL Urine Blood (NEGATIVE) /ul Urine Nitrate (NEGATIVE) Urine Bilirubin (NEGATIVE) mg/dl Urine Urobilinogen (NORMAL) EU/dl Ur Epithelial Cells (0-5) /hpf Ur Renal Epithelial Cell (NONE) /hpf Acetaminophen (10.0-30.0) mcg/mL Laboratory Results WBC 4.3 K/mm3 (4.0-10.5) 07/22/20 15:58 RBC 4.03 M/mm3 (4.7-6.0) L 05/09/21 15:58 Hgb 13.1 gm/dL (13.5-18.0) L 07/22/20 15:58 Hct 39.9 % (42.0-52.0) L 07/22/20 15:58 MCV 99.0 fl (78-100) 07/22/20 15:58 MCH 32.5 pg (27-31) H 07/22/20 15:58 MCHC 32.8 g/dl (32-36) 07/22/20 15:58 RDW 14.5 % (11.5-14.0) H 07/22/20 15:58 Plt Count 22 K/mm3 (150-450) L* D 07/22/20 15:58 MPV 11.6 fl (8-11.3) H 07/22/20 15:58 Immature Gran % (Auto) 0.20 % (0.001-0.429) 07/22/20 15:58 Immature Gran # (Auto) 0.01 K/mm3 (0.000-0.0310) 07/22/20 15:58 Neutrophils % 68.2 % (42-75.0) 07/22/20 15:58 Lymphocytes % 21.4 % (20-51) 07/22/20 15:58 Monocytes % 8.8 % (0.0-9) 07/22/20 15:58 Eosinophils % 0.2 % (0.0-3.0) 07/22/20 15:58 Basophils % 1.2 % (0.0-1.0) H 07/22/20 15:58 Nucleated RBC % 0.0 k/mm3 (0-1) 07/22/20 15:58 Neutrophils # 2.9 K/mm3 (1.3-6.0) 07/22/20 15:58 Lymphocytes # 0.92 k/mm3 (1.5-3.5) L 07/22/20 15:58 Monocytes # 0.4 k/mm3 (0.0-1.0) 07/22/20 15:58 Eosinophils # 0.0 k/mm3 (0.0-0.7) 07/22/20 15:58 Absolute Basophils 0.1 k/mm3 (0.0-0.1) 07/22/20 15:58 PT 16.4 Seconds (9.1-10.7) H 07/22/20 15:58 INR (Anticoag Therapy) 1.61 INR (0.92-1.08) H 07/22/20 15:58 PTT (Josephine) 31.7 Seconds (24-32) 07/22/20 15:58 Sodium 135 mmol/L (132-142) 07/22/20 15:58 Plasma Sodium 135 mmol/L (130-142) 07/22/20 15:58 Potassium 3.4 mmol/L (3.4-4.6) 07/22/20 15:58 Chloride 96 mmol/L (97-106) L 07/22/20 15:58 Carbon Dioxide 17.2 mmol/L (24-32.6) L 07/22/20 15:58 Anion Gap 25.2 mmol/L (6.8-13.8) H 07/22/20 15:58 BUN 4 mg/dL (6-23) L 07/22/20 15:58 Creatinine 1.19 mg/dL (0.4-1.4) 07/22/20 15:58 Est GFR (Non-Af Amer) 66 mL/min (60-130) D 07/22/20 15:58 BUN/Creatinine Ratio 3.4 (9.0-21.6) L 07/22/20 15:58 Random Glucose 109 mg/dL (70-110) 07/22/20 15:58 Lactic Acid, Venous 2.6 mmol/L (0.4-2.0) H* 07/22/20 18:40 Calcium 8.6 mg/dL (7.9-10.9) 07/22/20 15:58 Calcium Adj for Albumin 8.8 mg/dL (8.4-10.2) 07/22/20 15:58 Magnesium 1.2 mg/dL (1.2-2.8) 07/22/20 15:58 Total Bilirubin 5.1 mg/dL (0.0-1.1) H 07/22/20 15:58 AST 166 U/L (0-48) H 07/22/20 15:58 ALT 43 U/L (19-67) 07/22/20 15:58 Alkaline Phosphatase 229 U/L (50-170) H 07/22/20 15:58 Ammonia 48.0 mcmol/L (11-35) H 07/22/20 15:58 Creatine Kinase 130 U/L (0-259) 07/22/20 15:58 Troponin I Less than 0.017 ng/mL (0.00-0.10) 07/22/20 15:58 Total Protein 8.5 gm/dL (6.2-8.2) H 07/22/20 15:58 Albumin 3.3 gm/dl (3.4-5.0) L 07/22/20 15:58 Lipase 82 U/L (73-393) 07/22/20 15:58 TSH 9.282 uIU/mL (0.358-3.74) H 07/22/20 15:58 Free T4 1.42 ng/dL (0.76-1.46) 07/22/20 15:58 Urine Color Dark yellow 07/22/20 18:00 Urine Appearance Slightly cloudy (CLEAR) 07/22/20 18:00 Urine pH 8.5 pH (5.0-7.0) 07/22/20 18:00 Ur Specific [place] 1.020 SP.GR. (1.005-1.030) 07/22/20 18:00 Urine Protein 30 mg/dL (NEGATIVE) H 07/22/20 18:00 Urine Glucose (UA) 100 mg/dL (NEGATIVE) H 07/22/20 18:00 Urine Ketones 5 mg/dL (NEGATIVE) 07/22/20 18:00 Urine Blood 10 /ul (NEGATIVE) H 07/22/20 18:00 Urine Nitrate Positive (NEGATIVE) H 07/22/20 18:00 Urine Bilirubin 3 mg/dl (NEGATIVE) H 07/22/20 18:00 Urine Urobilinogen >=8.0 EU/dl (NORMAL) H 07/22/20 18:00 Ur Leukocyte Esterase Negative /ul (NEGATIVE) 07/22/20 18:00 Urine RBC 0-5 /hpf (0-5) 07/22/20 18:00 Urine WBC 0-5 /hpf (0-5) 07/22/20 18:00 Ur Epithelial Cells 5-10 /hpf (0-5) H 07/22/20 18:00 Ur Renal Epithelial Cell Few - 1+ /hpf (NONE) H 07/22/20 18:00 Urine Bacteria Trace (NONE) 07/22/20 18:00 Urine Culture Comments Culture to follow 07/22/20 18:00 Urine Opiates Screen Negative (NEGATIVE) 07/22/20 18:00 Acetaminophen Less than 0.2 mcg/mL (10.0-30.0) L 07/22/20 15:58 Barbiturate Screen Negative (NEGATIVE) 07/22/20 18:00 Ur Phencyclidine Scrn Negative (NEGATIVE) 07/22/20 18:00 Urine Amphetamine Negative (NEGATIVE) 07/22/20 18:00 U Benzodiazepines Scrn Negative (NEGATIVE) 07/22/20 18:00 Urine Cocaine Screen Negative (NEGATIVE) 07/22/20 18:00 Urine Marijuana (THC) Negative (NEGATIVE) 07/22/20 18:00 Ethyl Alcohol Less than 3.0 mg/dL (0.0-10.0) 07/22/20 15:58 SARS-CoV-2 (PCR) Not detected (NotDetected) 07/22/20 16:59 Assessment/Plan - Narrative Narrative: Patient was evaluated and medical chart was reviewed and decision to admit for alcohol withdrawal syndrome was made. The patient is resting comfortably in his room and is receiving IV hydration which included a banana bag. We will administer daily thiamine as well as folic acid and treat him with anxiolytic as needed for seizures and anxiety. At the moment he maintains stable vitals and is oriented x3 and is cooperative at the moment. We will start him on thyroid replacement therapy given his elevated TSH and repeat labs in the morning. - Assessment/Plan (1) Balance problem Problem: Acute (2) Alcohol withdrawal syndrome Problem: Acute (3) Thrombocytopenia Problem: Acute (4) Elevated lactic acid level Problem: Acute (5) Hyperbilirubinemia Problem: Acute (6) Hypertension Problem: Chronic Qualifiers: (7) Hyperlipidemia Problem: Chronic Qualifiers: (8) Elevated AST (SGOT) Problem: Acute (9) Morbid obesity due to excess calories Problem: Chronic
[2020-07-23] MEDS: LORazepam 2 MG/ML DISP.SYRIN IV PRN ×6 (03:49→09:29)
[2020-07-23 06:23] LABS: Hematocrit 37.9 % (42.0-52.0); Hemoglobin 12.7 gm/dL (13.5-18.0); Mean Cell Volume 97.9 fl (78-100); Mean Corpuscular Hemoglobin 32.8 pg (27-31); Mean Corpuscular Hgb Conc 33.5 g/dl (32-36); Mean Platelet Volume 12.2 fl (8-11.3); Neutrophil # 2.1 K/mm3 (1.3-6.0); Neutrophil % 58.4 % (42-75.0); Red Blood Count 3.87 M/mm3 (4.7-6.0); Red Cell Distribution Width 14.3 % (11.5-14.0); White Blood Count 3.6 K/mm3 (4.0-10.5)
[2020-07-23] MEDS: LEVOTHYROXINE SODIUM 50 MCG TABLET PO SCH (06:32)
[2020-07-23] MEDS: PANTOPRAZOLE SODIUM 20 MG TABLET.DR PO SCH ×2 (06:32→20:26)
[2020-07-23 06:39] LABS: Albumin * 2.9 gm/dl (3.4-5.0); Anion Gap 12.7 mmol/L (6.8-13.8); BUN/Creatinine Ratio 3.8 (9.0-21.6); Bilirubin, Total 5.8 mg/dL (0.0-1.1); Ca. Corrected For Albumin 8.7 mg/dL (8.4-10.2); Calcium * 8.1 mg/dL (7.9-10.9); Carbon Dioxide 23.3 mmol/L (24-32.6); Total Protein 7.8 gm/dL (6.2-8.2)
[2020-07-23 06:46] LABS: Magnesium 1.3 mg/dL (1.2-2.8)
[2020-07-23 07:04] LABS: Platelet Count 22 K/mm3 (150-450)
[2020-07-23] MEDS ORDERED: ROSUVASTATIN CALCIUM 10 MG TABLET PO SCH (09:00)
[2020-07-23] MEDS: GABAPENTIN 300 MG CAPSULE PO SCH (09:31)
[2020-07-23] MEDS: MULTIVITAMINS 1 CAP CAPSULE PO SCH (09:31)
[2020-07-23] MEDS: METOPROLOL SUCCINATE 100 MG TABLET.SA PO SCH (09:31)
[2020-07-23] MEDS: FOLIC ACID 0.4 MG TABLET PO SCH (09:31)
[2020-07-23] MEDS: THIAMINE HCL 100 MG TABLET PO SCH (09:31)
[2020-07-23] MEDS ORDERED: POTASSIUM CHLORIDE 20 MEQ TABLET.SA PO ONE (12:01)
--- NOTE | 2020-07-23 12:02 | PN ---
Subjective - Date and Time Seen Date: 07/23/20 Time: 11:57 Objective Objective Narrative: 61-year-old male admitted for acute alcohol withdrawal, and dehydration was evaluated bedside this morning was found to be afebrile and in no acute distress. Patient has been more anxious and tremulous since arriving to the floor, he has needed multiple doses of Ativan in order to calm him. Nurses also reporting diaphoresis throughout hours of the day which is most likely related to his alcohol withdrawal. His CIWA score is also increasing instead of decreasing. Given these findings the patient it would be best that the patient stays for intrahospital care given concern of worsening alcohol withdrawal symptoms including seizure and high fall risk. We will continue with IV hydration and watchful seizure precautions. - Review of Systems Neurological: Reports: Tremors, Weakness, Pre-existing Deficit - Vitals Vitals: Last Vital Signs Temp 37.4 C 07/23/20 07:40 Pulse 94 07/23/20 10:30 Resp 20 07/23/20 07:40 BP 142/113 H 07/23/20 09:31 Pulse Ox 94 07/23/20 02:02 - Abnormal Lab Findings Abnormal Lab Findings: Abnormal Lab Results 07/22/20 07/22/20 07/22/20 Range/Units 15:58 15:58 15:58 WBC (4.0-10.5) K/mm3 RBC 4.03 L (4.7-6.0) M/mm3 Hgb 13.1 L (13.5-18.0) gm/dL Hct 39.9 L (42.0-52.0) % MCH 32.5 H (27-31) pg RDW 14.5 H (11.5-14.0) % Plt Count 22 L* D (150-450) K/mm3 MPV 11.6 H (8-11.3) fl Immature Gran % (Auto) (0.001-0.429) % Monocytes % (0.0-9) % Basophils % 1.2 H (0.0-1.0) % Lymphocytes # 0.92 L (1.5-3.5) k/mm3 PT (9.1-10.7) Seconds INR (Anticoag Therapy) (0.92-1.08) INR Potassium (3.4-4.6) mmol/L Chloride 96 L (97-106) mmol/L Carbon Dioxide 17.2 L (24-32.6) mmol/L Anion Gap 25.2 H (6.8-13.8) mmol/L BUN 4 L (6-23) mg/dL BUN/Creatinine Ratio 3.4 L (9.0-21.6) Random Glucose (70-110) mg/dL Lactic Acid, Venous 9.3 H* (0.4-2.0) mmol/L Total Bilirubin 5.1 H (0.0-1.1) mg/dL AST 166 H (0-48) U/L Alkaline Phosphatase 229 H (50-170) U/L Ammonia (11-35) mcmol/L Total Protein 8.5 H (6.2-8.2) gm/dL Albumin 3.3 L (3.4-5.0) gm/dl TSH 9.282 H (0.358-3.74) uIU/mL Urine Protein (NEGATIVE) mg/dL Urine Glucose (UA) (NEGATIVE) mg/dL Urine Blood (NEGATIVE) /ul Urine Nitrate (NEGATIVE) Urine Bilirubin (NEGATIVE) mg/dl Urine Urobilinogen (NORMAL) EU/dl Ur Epithelial Cells (0-5) /hpf Ur Renal Epithelial Cell (NONE) /hpf Acetaminophen Less than 0.2 L (10.0-30.0) mcg/mL 07/22/20 07/22/20 07/22/20 Range/Units 15:58 15:58 18:00 WBC (4.0-10.5) K/mm3 RBC (4.7-6.0) M/mm3 Hgb (13.5-18.0) gm/dL Hct (42.0-52.0) % MCH (27-31) pg RDW (11.5-14.0) % Plt Count (150-450) K/mm3 MPV (8-11.3) fl Immature Gran % (Auto) (0.001-0.429) % Monocytes % (0.0-9) % Basophils % (0.0-1.0) % Lymphocytes # (1.5-3.5) k/mm3 PT 16.4 H (9.1-10.7) Seconds INR (Anticoag Therapy) 1.61 H (0.92-1.08) INR Potassium (3.4-4.6) mmol/L Chloride (97-106) mmol/L Carbon Dioxide (24-32.6) mmol/L Anion Gap (6.8-13.8) mmol/L BUN (6-23) mg/dL BUN/Creatinine Ratio (9.0-21.6) Random Glucose (70-110) mg/dL Lactic Acid, Venous (0.4-2.0) mmol/L Total Bilirubin (0.0-1.1) mg/dL AST (0-48) U/L Alkaline Phosphatase (50-170) U/L Ammonia 48.0 H (11-35) mcmol/L Total Protein (6.2-8.2) gm/dL Albumin (3.4-5.0) gm/dl TSH (0.358-3.74) uIU/mL Urine Protein 30 H (NEGATIVE) mg/dL Urine Glucose (UA) 100 H (NEGATIVE) mg/dL Urine Blood 10 H (NEGATIVE) /ul Urine Nitrate Positive H (NEGATIVE) Urine Bilirubin 3 H (NEGATIVE) mg/dl Urine Urobilinogen >=8.0 H (NORMAL) EU/dl Ur Epithelial Cells 5-10 H (0-5) /hpf Ur Renal Epithelial Cell Few - 1+ H (NONE) /hpf Acetaminophen (10.0-30.0) mcg/mL 07/22/20 07/23/20 07/23/20 Range/Units 18:40 06:14 06:14 WBC 3.6 L (4.0-10.5) K/mm3 RBC 3.87 L (4.7-6.0) M/mm3 Hgb 12.7 L (13.5-18.0) gm/dL Hct 37.9 L (42.0-52.0) % MCH 32.8 H (27-31) pg RDW 14.3 H (11.5-14.0) % Plt Count 22 L* (150-450) K/mm3 MPV 12.2 H (8-11.3) fl Immature Gran % (Auto) 0.00 L (0.001-0.429) % Monocytes % 9.1 H (0.0-9) % Basophils % (0.0-1.0) % Lymphocytes # 1.12 L (1.5-3.5) k/mm3 PT (9.1-10.7) Seconds INR (Anticoag Therapy) (0.92-1.08) INR Potassium 3.0 L (3.4-4.6) mmol/L Chloride (97-106) mmol/L Carbon Dioxide 23.3 L (24-32.6) mmol/L Anion Gap (6.8-13.8) mmol/L BUN 3 L (6-23) mg/dL BUN/Creatinine Ratio 3.8 L (9.0-21.6) Random Glucose 120 H (70-110) mg/dL Lactic Acid, Venous 2.6 H* (0.4-2.0) mmol/L Total Bilirubin 5.8 H (0.0-1.1) mg/dL AST 152 H (0-48) U/L Alkaline Phosphatase 208 H (50-170) U/L Ammonia (11-35) mcmol/L Total Protein (6.2-8.2) gm/dL Albumin 2.9 L (3.4-5.0) gm/dl TSH (0.358-3.74) uIU/mL Urine Protein (NEGATIVE) mg/dL Urine Glucose (UA) (NEGATIVE) mg/dL Urine Blood (NEGATIVE) /ul Urine Nitrate (NEGATIVE) Urine Bilirubin (NEGATIVE) mg/dl Urine Urobilinogen (NORMAL) EU/dl Ur Epithelial Cells (0-5) /hpf Ur Renal Epithelial Cell (NONE) /hpf Acetaminophen (10.0-30.0) mcg/mL - Exam Constitutional: Present: Alert, Cooperative, No distress, Lethargic, Somnolent, Morbidly obese ENT Exam: Present: normal ENT inspection Respiratory: Present: chest non-tender, lungs clear, normal breath sounds, no respiratory distress, no accessory muscle use Cardiovascular/Chest: Present: regular rate, rhythm, no chest tenderness, no edema, no gallop, no JVD, no murmur, no rub, tachycardia Abdomen: Present: Normal bowel sounds, soft, nontender, nondistended, no rebound tenderness, no hepatospenomegaly, no masses, obese /Rectal: Present: Exam deferred Extremity: Present: normal range of motion, non-tender, normal inspection, no pedal edema, no calf tenderness, normal capillary refill, pelvis stable Skin Exam: Present: normal color, warm/dry, no cyanosis Lymphatic: Present: no adenopathy Neurologic: Present: alert, depressed affect, disoriented x 3 Appearance: Present: disheveled, impaired insight Eye contact: Present: cooperative, belligerent Thoughts: Present: no apparent hallucination Assessment/Plan Plan Narrative: Patient presents hypokalemia on this morning's labs, so potassium supplement was ordered. We will repeat labs in the morning we will continue with the current management and reevaluate on next rounds. - Problems/Diagnosis (1) Balance problem Problem: Acute (2) Alcohol withdrawal syndrome Problem: Acute (3) Thrombocytopenia Problem: Acute (4) Elevated lactic acid level Problem: Acute (5) Hyperbilirubinemia Problem: Acute (6) Hypertension Problem: Chronic Qualifiers: (7) Hyperlipidemia Problem: Chronic Qualifiers: (8) Elevated AST (SGOT) Problem: Acute (9) Morbid obesity due to excess calories Problem: Chronic (10) Hypokalemia Problem: Acute
[2020-07-23] MEDS: MULTIVIT INFUSN,ADULT 4,VIT K 10 ML, THIAMINE HCL 100 MG in DEXTROSE 5 % IN WATER 1,000 ML IV SCH ×3 (15:45)
[2020-07-23] MEDS: ROSUVASTATIN CALCIUM 10 MG TABLET PO SCH (20:25)
[2020-07-24] MEDS: LORazepam 2 MG/ML DISP.SYRIN IV PRN ×9 (00:28→20:36)
[2020-07-24] MEDS: PANTOPRAZOLE SODIUM 20 MG TABLET.DR PO SCH ×2 (06:19→20:08)
[2020-07-24] MEDS: LEVOTHYROXINE SODIUM 50 MCG TABLET PO SCH (06:19)
[2020-07-24 06:50] LABS: Albumin * 2.8 gm/dl (3.4-5.0); Anion Gap 14.8 mmol/L (6.8-13.8); BUN/Creatinine Ratio 6.8 (9.0-21.6); Bilirubin, Total 6.6 mg/dL (0.0-1.1); Calcium * 8.4 mg/dL (7.9-10.9); Carbon Dioxide 22.4 mmol/L (24-32.6); Potassium 3.2 mmol/L (3.4-4.6); Total Protein 7.7 gm/dL (6.2-8.2)
[2020-07-24] MEDS: FOLIC ACID 0.4 MG TABLET PO SCH (08:02)
[2020-07-24] MEDS: GABAPENTIN 300 MG CAPSULE PO SCH (08:02)
[2020-07-24] MEDS: METOPROLOL SUCCINATE 100 MG TABLET.SA PO SCH (08:02)
[2020-07-24] MEDS: MULTIVITAMINS 1 CAP CAPSULE PO SCH (08:02)
[2020-07-24] MEDS: THIAMINE HCL 100 MG TABLET PO SCH (08:02)
[2020-07-24] MEDS ORDERED: POTASSIUM CHLORIDE 20 MEQ TABLET.SA PO ONE (09:35)
--- NOTE | 2020-07-24 09:52 | PN ---
Subjective - Date and Time Seen Date: 07/24/20 Time: 09:44 Subjective Narrative: I still feel shaky and weak Objective Objective Narrative: 61-year-old male admitted for acute alcohol withdrawal, and dehydration was evaluated bedside this morning was found to be resting comfortably however he appears anxious. The patient's anxiety has been managed with Ativan which he tolerated without any issues. This morning he was more lucid and more conversive compared to yesterday however he still tremulous and has elevated CIWA score. He was also noticed to be jaundiced at bedside this morning which is new, this might be related to his alcoholic liver disease. The patient's liver enzymes as well as alk phos are trending down however his bilirubin continues to increase. This morning we had a thorough conversation about quitting drinking to avoid further injury to his liver and he informed me that he feels he should be able to do that. We will continue to offer help so that he will attend AA or other professional organizations to help him quit drinking. In the meantime the patient maintained stable vitals and labs this morning showed improvement in his renal function and his potassium levels. Additional tablet of potassium supplement was added to resolve the hypokalemia. - Review of Systems Generalized/Overall Review: Reports: Weakness EENTM: Reports: No Symptoms Reported Respiratory: Reports: No Symptoms Reported Cardiac: Reports: No Symptoms Reported Abdominal: Reports: No Symptoms Reported Genitourinary Symptoms: Reports: No Symptoms Reported Musculoskeletal Complaints: Reports: No Symptoms Reported Neurological: Reports: Tremors, Pre-existing Deficit Skin: Reports: No Symptoms Reported Endocrine: Reports: No Symptoms Reported - Vitals Vitals: Last Vital Signs Temp 37.3 C 07/24/20 06:43 Pulse 79 07/24/20 08:02 Resp 20 07/24/20 06:43 BP 161/91 H 07/24/20 08:02 Pulse Ox 97 07/24/20 06:43 - Abnormal Lab Findings Abnormal Lab Findings: Abnormal Lab Results 07/24/20 Range/Units 06:16 Potassium 3.2 L (3.4-4.6) mmol/L Carbon Dioxide 22.4 L (24-32.6) mmol/L Anion Gap 14.8 H (6.8-13.8) mmol/L BUN 5 L D (6-23) mg/dL BUN/Creatinine Ratio 6.8 L (9.0-21.6) Total Bilirubin 6.6 H (0.0-1.1) mg/dL AST 130 H (0-48) U/L Alkaline Phosphatase 194 H (50-170) U/L Albumin 2.8 L (3.4-5.0) gm/dl - Exam Constitutional: Present: Alert, Cooperative, Well developed, No distress, Lethargic, Morbidly obese ENT Exam: Present: normal ENT inspection, hearing grossly normal Neck: Present: non-tender, full range of motion, supple, normal inspection, trachea midline Breasts: Present: Exam deferred Respiratory: Present: chest non-tender, lungs clear, normal breath sounds, no respiratory distress, no accessory muscle use Cardiovascular/Chest: Present: normal peripheral pulses, regular rate, rhythm, no chest tenderness, no edema, no gallop, no JVD, no murmur, no rub Abdomen: Present: Normal bowel sounds, soft, nontender, nondistended, no rebound tenderness, no masses, obese /Rectal: Present: Exam deferred Extremity: Present: normal range of motion, non-tender, normal inspection, no pedal edema, no calf tenderness, normal capillary refill, pelvis stable Skin Exam: Present: warm/dry, no cyanosis, jaundice Lymphatic: Present: no adenopathy Neurologic: Present: no motor/sensory deficits, alert, oriented x 3 Appearance: Present: disheveled, impaired insight, impaired recent memory Eye contact: Present: cooperative, good eye contact, normal speech Assessment/Plan Plan Narrative: Physical therapy has been ordered to evaluate the patient's ambulation and issue s with balance since he is reporting stumbling and being off balance when walking. This is also important to avoid deconditioning. We will follow up with recommendations from PT. Patient is being treated with daily banana bags for proper hydration and electrolyte replacements, he is tolerating this without any issues. He is also tolerating oral intake without any nausea or vomiting and denies any abdominal pain with ingestion. His abdomen is nontender however he is noted to be jaundiced most likely due to his ailing liver. We will repeat labs in the morning and reevaluate the patient. - Problems/Diagnosis (1) Balance problem Problem: Acute (2) Alcohol withdrawal syndrome Problem: Acute (3) Thrombocytopenia Problem: Acute (4) Elevated lactic acid level Problem: Acute (5) Hyperbilirubinemia Problem: Acute (6) Hypertension Problem: Chronic Qualifiers: (7) Hyperlipidemia Problem: Chronic Qualifiers: (8) Elevated AST (SGOT) Problem: Acute (9) Morbid obesity due to excess calories Problem: Chronic (10) Hypokalemia Problem: Acute (11) Jaundice Problem: Acute (12) Jaundice, hepatocellular Problem: Acute
[2020-07-24] MEDS: MULTIVIT INFUSN,ADULT 4,VIT K 10 ML, THIAMINE HCL 100 MG in DEXTROSE 5 % IN WATER 1,000 ML IV SCH ×3 (15:19)
[2020-07-24] MEDS: ROSUVASTATIN CALCIUM 10 MG TABLET PO SCH (20:09)
[2020-07-25] MEDS: LORazepam 2 MG/ML DISP.SYRIN IV PRN ×3 (01:04→04:47)
[2020-07-25] MEDS: LEVOTHYROXINE SODIUM 50 MCG TABLET PO SCH (06:25)
[2020-07-25] MEDS: PANTOPRAZOLE SODIUM 20 MG TABLET.DR PO SCH ×2 (06:25→20:35)
[2020-07-25] MEDS: GABAPENTIN 300 MG CAPSULE PO SCH (08:17)
[2020-07-25] MEDS: METOPROLOL SUCCINATE 100 MG TABLET.SA PO SCH (08:18)
[2020-07-25] MEDS: THIAMINE HCL 100 MG TABLET PO SCH (08:18)
[2020-07-25] MEDS: FOLIC ACID 0.4 MG TABLET PO SCH (08:18)
[2020-07-25] MEDS: MULTIVITAMINS 1 CAP CAPSULE PO SCH (08:18)
[2020-07-25 08:53] LABS: Hematocrit 38.5 % (42.0-52.0); Hemoglobin 12.9 gm/dL (13.5-18.0); Mean Corpuscular Hemoglobin 33.5 pg (27-31); Mean Corpuscular Hgb Conc 33.5 g/dl (32-36); Mean Platelet Volume 12.3 fl (8-11.3); Neutrophil % 54.1 % (42-75.0); Red Blood Count 3.85 M/mm3 (4.7-6.0); Red Cell Distribution Width 14.6 % (11.5-14.0); White Blood Count 3.7 K/mm3 (4.0-10.5)
[2020-07-25 08:54] LABS: Platelet Count 38 K/mm3 (150-450)
[2020-07-25 08:58] LABS: Albumin * 2.8 gm/dl (3.4-5.0); Anion Gap 15.3 mmol/L (6.8-13.8); BUN/Creatinine Ratio 7.1 (9.0-21.6); Bilirubin, Total 6.2 mg/dL (0.0-1.1); Calcium * 8.4 mg/dL (7.9-10.9); Carbon Dioxide 21.1 mmol/L (24-32.6); Potassium 3.4 mmol/L (3.4-4.6); Total Protein 7.6 gm/dL (6.2-8.2)
--- NOTE | 2020-07-25 09:55 | PN ---
Subjective - Date and Time Seen Date: 07/25/20 Time: 09:45 Objective Objective Narrative: 61-year-old male admitted for acute alcohol withdrawal, Acute alcohol induced liver injury, and dehydration was evaluated bedside this morning was found to be afebrile and in no acute distress. Patient continues to present periods of confusion and disorientation, he regularly has to be oriented about where he has and why he is here. Nursing staff report that the patient is needing to assist or more in order to ambulate, this was confirmed by physical therapy who classifies him as a high fall risk. Given these findings it appears that discharging him home would not be safe, especially since he lives alone. Therefore during this morning's evaluation, a discussion was held about long- term discharge planning and the patient agreed to go to a care center for continued management and treatment. Labs this morning revealed improvement in his liver enzymes and bilirubin, and his platelets have increased. This is further confirmation that his elements or all alcohol induced. So again he was counseled on the importance of quitting alcohol to avoid further consequences to his health. - Review of Systems Generalized/Overall Review: Reports: Weakness EENTM: Reports: No Symptoms Reported Respiratory: Reports: No Symptoms Reported Cardiac: Reports: No Symptoms Reported Abdominal: Reports: No Symptoms Reported Genitourinary Symptoms: Reports: No Symptoms Reported Musculoskeletal Complaints: Reports: No Symptoms Reported Neurological: Reports: Pre-existing Deficit Skin: Reports: Change in Color Endocrine: Reports: No Symptoms Reported - Vitals Vitals: Last Vital Signs Temp 36.8 C 07/25/20 06:00 Pulse 76 07/25/20 08:18 Resp 20 07/25/20 06:00 BP 134/76 07/25/20 08:18 Pulse Ox 96 07/25/20 06:00 - Abnormal Lab Findings Abnormal Lab Findings: Abnormal Lab Results 07/25/20 07/25/20 Range/Units 08:41 08:41 WBC 3.7 L (4.0-10.5) K/mm3 RBC 3.85 L (4.7-6.0) M/mm3 Hgb 12.9 L (13.5-18.0) gm/dL Hct 38.5 L (42.0-52.0) % MCH 33.5 H (27-31) pg RDW 14.6 H (11.5-14.0) % Plt Count 38 L (150-450) K/mm3 MPV 12.3 H (8-11.3) fl Immature Gran % (Auto) 0.00 L (0.001-0.429) % Monocytes % 9.2 H (0.0-9) % Basophils % 1.4 H (0.0-1.0) % Lymphocytes # 1.21 L (1.5-3.5) k/mm3 Carbon Dioxide 21.1 L (24-32.6) mmol/L Anion Gap 15.3 H (6.8-13.8) mmol/L BUN 5 L (6-23) mg/dL BUN/Creatinine Ratio 7.1 L (9.0-21.6) Total Bilirubin 6.2 H (0.0-1.1) mg/dL AST 123 H (0-48) U/L Alkaline Phosphatase 192 H (50-170) U/L Albumin 2.8 L (3.4-5.0) gm/dl - Exam Constitutional: Present: Alert, Cooperative, Well developed, No distress, Lethargic, Obese ENT Exam: Present: normal ENT inspection, hearing grossly normal Neck: Present: non-tender, full range of motion, supple, normal inspection, trachea midline Breasts: Present: Exam deferred, Nontender Respiratory: Present: chest non-tender, lungs clear, normal breath sounds, no respiratory distress, no accessory muscle use Cardiovascular/Chest: Present: normal peripheral pulses, regular rate, rhythm, no chest tenderness, no edema, no gallop, no JVD, no murmur, no rub Abdomen: Present: Normal bowel sounds, soft, nontender, nondistended, no rebound tenderness, no masses, obese /Rectal: Present: Exam deferred Extremity: Present: normal range of motion, non-tender, normal inspection, no pedal edema, no calf tenderness, normal capillary refill, pelvis stable Skin Exam: Present: warm/dry, no cyanosis, jaundice Lymphatic: Present: no adenopathy Neurologic: Present: no motor/sensory deficits, alert, normal mood/affect, abnormal gait, disoriented x 3 Appearance: Present: disheveled, impaired insight, impaired recent memory, impaired remote memory Eye contact: Present: cooperative, good eye contact Assessment/Plan Plan Narrative: We will continue to work on discharge planning, in the meantime we will repeat CMP in the morning to reevaluate liver enzymes and bilirubin. - Problems/Diagnosis (1) Balance problem Problem: Acute (2) Alcohol withdrawal syndrome Problem: Acute (3) Thrombocytopenia Problem: Acute (4) Elevated lactic acid level Problem: Acute (5) Hyperbilirubinemia Problem: Acute (6) Hypertension Problem: Chronic Qualifiers: (7) Hyperlipidemia Problem: Chronic Qualifiers: (8) Elevated AST (SGOT) Problem: Acute (9) Morbid obesity due to excess calories Problem: Chronic (10) Hypokalemia Problem: Acute (11) Jaundice Problem: Acute (12) Jaundice, hepatocellular Problem: Acute (13) Alcohol induced liver disorder Problem: Acute
[2020-07-25] MEDS: MULTIVIT INFUSN,ADULT 4,VIT K 10 ML, THIAMINE HCL 100 MG in DEXTROSE 5 % IN WATER 1,000 ML IV SCH ×3 (14:38)
[2020-07-25] MEDS: ROSUVASTATIN CALCIUM 10 MG TABLET PO SCH (20:35)
[2020-07-26 06:35] LABS: Hematocrit 37.8 % (42.0-52.0); Hemoglobin 12.6 gm/dL (13.5-18.0); Mean Cell Volume 99.7 fl (78-100); Mean Corpuscular Hemoglobin 33.2 pg (27-31); Mean Corpuscular Hgb Conc 33.3 g/dl (32-36); Mean Platelet Volume 12.3 fl (8-11.3); Neutrophil # 2.1 K/mm3 (1.3-6.0); Neutrophil % 56.6 % (42-75.0); Platelet Count 47 K/mm3 (150-450); Red Blood Count 3.79 M/mm3 (4.7-6.0); Red Cell Distribution Width 14.5 % (11.5-14.0); White Blood Count 3.7 K/mm3 (4.0-10.5)
[2020-07-26 06:43] LABS: Albumin * 2.7 gm/dl (3.4-5.0); Anion Gap 15.1 mmol/L (6.8-13.8); BUN/Creatinine Ratio 8.6 (9.0-21.6); Ca. Corrected For Albumin 9.2 mg/dL (8.4-10.2); Calcium * 8.5 mg/dL (7.9-10.9); Carbon Dioxide 20.4 mmol/L (24-32.6); Potassium 3.5 mmol/L (3.4-4.6); Total Protein 7.4 gm/dL (6.2-8.2)
[2020-07-26] MEDS: GABAPENTIN 300 MG CAPSULE PO SCH (08:20)
[2020-07-26] MEDS: METOPROLOL SUCCINATE 100 MG TABLET.SA PO SCH (08:21)
[2020-07-26] MEDS: FOLIC ACID 0.4 MG TABLET PO SCH (08:21)
[2020-07-26] MEDS: PANTOPRAZOLE SODIUM 20 MG TABLET.DR PO SCH ×2 (08:21→20:41)
[2020-07-26] MEDS: MULTIVITAMINS 1 CAP CAPSULE PO SCH (08:21)
[2020-07-26] MEDS: LEVOTHYROXINE SODIUM 50 MCG TABLET PO SCH (08:21)
[2020-07-26] MEDS: THIAMINE HCL 100 MG TABLET PO SCH (08:21)
--- NOTE | 2020-07-26 12:41 | PN ---
Subjective - Date and Time Seen Date: 07/26/20 Time: 12:35 Subjective Narrative: I feel somewhat better today, less drowsy. Objective Objective Narrative: 61-year-old male admitted for acute alcohol withdrawal, Acute alcohol induced liver injury, and dehydration was evaluated bedside this morning was found to be afebrile and in no acute distress. Patient is showing some clinical improvement today, he is more awake and alert and actually oriented in person time and place. This morning he reported feeling more lucid and less drowsy and appeared to be in a better mood. His daughter drove from [place] to visit him and she explains that she did not know the extent of his drinking so this is very surprising for her. The patient has been treated with daily banana bags and thiamine replacement and has tolerated the treatment well. He has maintained stable vitals and is a lot calmer than before. His CIWA score has also decreased to almost normal levels. Today's labs also show improvement in his liver enzymes alk phos and bilirubin, in fact his bilirubin is down to 5. His jaundice has also almost completely resolved. These are all encouraging signs however the patient continues to be a high fall risk and he has been determined that it is not safe for him to be discharged home, we will instead work on discharge planning to a nursing facility where he can continue his rehab and withdrawal from alcohol. - Review of Systems Generalized/Overall Review: Reports: Weakness EENTM: Reports: No Symptoms Reported Respiratory: Reports: No Symptoms Reported Cardiac: Reports: No Symptoms Reported Abdominal: Reports: No Symptoms Reported Genitourinary Symptoms: Reports: No Symptoms Reported Musculoskeletal Complaints: Reports: No Symptoms Reported Neurological: Reports: Pre-existing Deficit Skin: Reports: No Symptoms Reported Endocrine: Reports: No Symptoms Reported - Vitals Vitals: Last Vital Signs Temp 37.6 C 07/26/20 12:01 Pulse 88 07/26/20 12:01 Resp 16 07/26/20 12:01 BP 134/71 07/26/20 12:01 Pulse Ox 95 07/26/20 12:01 - Abnormal Lab Findings Abnormal Lab Findings: Abnormal Lab Results 07/26/20 07/26/20 Range/Units 06:21 06:21 WBC 3.7 L (4.0-10.5) K/mm3 RBC 3.79 L (4.7-6.0) M/mm3 Hgb 12.6 L (13.5-18.0) gm/dL Hct 37.8 L (42.0-52.0) % MCH 33.2 H (27-31) pg RDW 14.5 H (11.5-14.0) % Plt Count 47 L (150-450) K/mm3 MPV 12.3 H (8-11.3) fl Monocytes % 10.8 H (0.0-9) % Basophils % 1.1 H (0.0-1.0) % Lymphocytes # 1.08 L (1.5-3.5) k/mm3 Carbon Dioxide 20.4 L (24-32.6) mmol/L Anion Gap 15.1 H (6.8-13.8) mmol/L BUN/Creatinine Ratio 8.6 L (9.0-21.6) Total Bilirubin 5.0 H (0.0-1.1) mg/dL AST 111 H (0-48) U/L Alkaline Phosphatase 176 H (50-170) U/L Albumin 2.7 L (3.4-5.0) gm/dl - Exam Constitutional: Present: Alert, Oriented x3, Cooperative, Well developed, Well nourished, No distress, Morbidly obese ENT Exam: Present: normal ENT inspection, hearing grossly normal Neck: Present: non-tender, full range of motion, supple, normal inspection, trachea midline Breasts: Present: Exam deferred, Nontender Respiratory: Present: chest non-tender, lungs clear, normal breath sounds, no respiratory distress, no accessory muscle use Cardiovascular/Chest: Present: normal peripheral pulses, regular rate, rhythm, no chest tenderness, no edema, no gallop, no JVD, no murmur, no rub Abdomen: Present: Normal bowel sounds, soft, nontender, nondistended, no rebound tenderness, no hepatospenomegaly, no masses, obese /Rectal: Present: Exam deferred Extremity: Present: normal range of motion, non-tender, normal inspection, no pedal edema, no calf tenderness, normal capillary refill Skin Exam: Present: normal color, warm/dry, no cyanosis Lymphatic: Present: no adenopathy Neurologic: Present: interior painter II-XII nml as tested, no motor/sensory deficits, alert, normal mood/affect Appearance: Present: appropriate appearance, disheveled, impaired insight Eye contact: Present: cooperative, good eye contact, normal speech Thoughts: Present: normal thought pattern, no apparent hallucination Assessment/Plan Plan Narrative: We will keep the patient in the hospital and continue to monitor him closely until we are able to secure a bed at a rehab facility. In the meantime, we will continue the current management. - Problems/Diagnosis (1) Balance problem Problem: Acute (2) Alcohol withdrawal syndrome Problem: Acute (3) Thrombocytopenia Problem: Acute (4) Elevated lactic acid level Problem: Acute (5) Hyperbilirubinemia Problem: Acute (6) Hypertension Problem: Chronic Qualifiers: (7) Hyperlipidemia Problem: Chronic Qualifiers: (8) Elevated AST (SGOT) Problem: Acute (9) Morbid obesity due to excess calories Problem: Chronic (10) Hypokalemia Problem: Acute (11) Jaundice Problem: Acute (12) Jaundice, hepatocellular Problem: Acute (13) Alcohol induced liver disorder Problem: Acute
[2020-07-26] MEDS: MULTIVIT INFUSN,ADULT 4,VIT K 10 ML, THIAMINE HCL 100 MG in DEXTROSE 5 % IN WATER 1,000 ML IV SCH ×3 (16:10)
[2020-07-26] MEDS: ROSUVASTATIN CALCIUM 10 MG TABLET PO SCH (20:41)
[2020-07-27] MEDS: LEVOTHYROXINE SODIUM 50 MCG TABLET PO SCH (06:44)
[2020-07-27] MEDS: PANTOPRAZOLE SODIUM 20 MG TABLET.DR PO SCH ×2 (06:44→20:07)
[2020-07-27] MEDS: THIAMINE HCL 100 MG TABLET PO SCH (09:15)
[2020-07-27] MEDS: METOPROLOL SUCCINATE 100 MG TABLET.SA PO SCH (09:15)
[2020-07-27] MEDS: FOLIC ACID 0.4 MG TABLET PO SCH (09:15)
[2020-07-27] MEDS: MULTIVITAMINS 1 CAP CAPSULE PO SCH (09:15)
[2020-07-27] MEDS: GABAPENTIN 300 MG CAPSULE PO SCH (09:15)
--- NOTE | 2020-07-27 10:26 | PN ---
Subjective - Date and Time Seen Date: 07/27/20 Time: 10:20 Subjective Narrative: I feel somewhat better today, less drowsy. Objective Objective Narrative: 61-year-old male admitted for acute alcohol withdrawal, Acute alcohol induced liver injury, and dehydration was evaluated bedside this morning was found to be afebrile and in no acute distress. Patient continues to be more awake and denies any symptoms at this time, he has not required Ativan to calm him down nor has he had any seizures. He does however continue to display mild somnolence and lethargy and appears hypoactive. Given the length of duration t he patient's drinking and the presentation to the hospitalization, Wernicke's encephalopathy is highly suspected. The patient continues to display periodic confusion and lethargy making Warnicke's likely. Discharge planning to a rehab facility is underway, once we have a bed we will discharge him. The patient is currently tolerating oral intake and has had plenty of IV hydration, therefore I will stop his daily banana bag and keep him on a multivitamin and oral thiamine supplements. - Review of Systems Generalized/Overall Review: Reports: No Symptoms Reported EENTM: Reports: No Symptoms Reported Respiratory: Reports: No Symptoms Reported Cardiac: Reports: No Symptoms Reported Abdominal: Reports: No Symptoms Reported Genitourinary Symptoms: Reports: No Symptoms Reported Musculoskeletal Complaints: Reports: No Symptoms Reported Neurological: Reports: No Symptoms Reported Skin: Reports: No Symptoms Reported Endocrine: Reports: No Symptoms Reported - Vitals Vitals: Last Vital Signs Temp 36.3 C 07/27/20 10:00 Pulse 70 07/27/20 10:00 Resp 16 07/27/20 10:00 BP 156/86 H 07/27/20 10:00 Pulse Ox 99 07/27/20 10:00 - Exam Constitutional: Present: Alert, Cooperative, Well developed, No distress, Elderly ENT Exam: Present: normal ENT inspection, hearing grossly normal Neck: Present: non-tender, full range of motion, supple, normal inspection, trachea midline Breasts: Present: Exam deferred, Nontender Respiratory: Present: chest non-tender, lungs clear, normal breath sounds, no respiratory distress, no accessory muscle use Cardiovascular/Chest: Present: normal peripheral pulses, regular rate, rhythm, no chest tenderness, no edema, no gallop, no JVD, no murmur, no rub Abdomen: Present: Normal bowel sounds, soft, nontender, nondistended, no rebound tenderness, no hepatospenomegaly, no masses, obese /Rectal: Present: Exam deferred Extremity: Present: normal range of motion, non-tender, normal inspection, no pedal edema, no calf tenderness Skin Exam: Present: normal color, warm/dry, no cyanosis Lymphatic: Present: no adenopathy Neurologic: Present: stock wetter II-XII nml as tested, normal cerebellar test, no motor/sensory deficits, alert, normal mood/affect, oriented x 3 Appearance: Present: disheveled, impaired insight Eye contact: Present: cooperative, good eye contact, normal speech Thoughts: Present: normal thought pattern, no apparent hallucination Assessment/Plan Plan Narrative: We will keep the patient over the weekend and continue the current management. - Problems/Diagnosis (1) Balance problem Problem: Acute (2) Alcohol withdrawal syndrome Problem: Acute (3) Thrombocytopenia Problem: Acute (4) Elevated lactic acid level Problem: Acute (5) Hyperbilirubinemia Problem: Acute (6) Hypertension Problem: Chronic Qualifiers: (7) Hyperlipidemia Problem: Chronic Qualifiers: (8) Elevated AST (SGOT) Problem: Acute (9) Morbid obesity due to excess calories Problem: Chronic (10) Hypokalemia Problem: Acute (11) Jaundice Problem: Acute (12) Jaundice, hepatocellular Problem: Acute (13) Alcohol induced liver disorder Problem: Acute (14) Wernicke encephalopathy Problem: Acute
[2020-07-27] MEDS: ROSUVASTATIN CALCIUM 10 MG TABLET PO SCH (20:07)
[2020-07-28] MEDS: GABAPENTIN 300 MG CAPSULE PO SCH (08:18)
[2020-07-28] MEDS: FOLIC ACID 0.4 MG TABLET PO SCH (08:18)
[2020-07-28] MEDS: METOPROLOL SUCCINATE 100 MG TABLET.SA PO SCH (08:18)
[2020-07-28] MEDS: MULTIVITAMINS 1 CAP CAPSULE PO SCH (08:19)
[2020-07-28] MEDS: LEVOTHYROXINE SODIUM 50 MCG TABLET PO SCH (08:19)
[2020-07-28] MEDS: THIAMINE HCL 100 MG TABLET PO SCH (08:19)
[2020-07-28] MEDS: PANTOPRAZOLE SODIUM 20 MG TABLET.DR PO SCH ×2 (08:19→20:39)
[2020-07-28] MEDS: ROSUVASTATIN CALCIUM 10 MG TABLET PO SCH (20:39)
--- NOTE | 2020-07-28 22:45 | PN ---
Subjective - Date and Time Seen Date: 07/28/20 Time: 05:30 Subjective Narrative: Patient is pleasant this morning, sleepy. Alert and oriented, vital signs stable. No medications needed for alcohol withdrawal. Objective - Review of Systems Generalized/Overall Review: Reports: No Symptoms Reported EENTM: Reports: No Symptoms Reported Respiratory: Reports: No Symptoms Reported Cardiac: Reports: No Symptoms Reported Abdominal: Reports: No Symptoms Reported Genitourinary Symptoms: Reports: No Symptoms Reported Neurological: Denies: Headache, Anxiety, Seizure Skin: Reports: No Symptoms Reported Endocrine: Reports: No Symptoms Reported - Vitals Vitals: Last Vital Signs Temp 36.7 C 07/28/20 21:58 Pulse 64 07/28/20 21:58 Resp 20 07/28/20 21:58 BP 129/71 07/28/20 21:58 Pulse Ox 96 07/28/20 21:58 - Exam Constitutional: Present: Alert, Cooperative, Looks Older than stated age. Absent: Oriented x3 - X2 Respiratory: Present: lungs clear, normal breath sounds Cardiovascular/Chest: Present: regular rate, rhythm, no murmur Abdomen: Present: Normal bowel sounds, soft, nontender Appearance: Present: appropriate appearance, impaired insight Eye contact: Present: cooperative, good eye contact Thoughts: Present: normal thought pattern, normal mood /affect Assessment/Plan Plan Narrative: Patient is currently stable, feels well that is sleeping. It is really the morning though. Nurses are concerned. Vital signs are stable. Continue current management, awaiting discharge to inpatient facility. Nurse to call questions or concerns. - Problems/Diagnosis (1) Chronic alcoholism Problem: Acute (2) Wernicke encephalopathy Problem: Acute (3) Hypokalemia Problem: Acute (4) Jaundice Problem: Acute (5) Alcohol induced liver disorder Problem: Acute (6) Hypertension Problem: Chronic Qualifiers:
[2020-07-29] MEDS: PANTOPRAZOLE SODIUM 20 MG TABLET.DR PO SCH ×2 (07:58→20:23)
[2020-07-29] MEDS: LEVOTHYROXINE SODIUM 50 MCG TABLET PO SCH (07:58)
[2020-07-29] MEDS: METOPROLOL SUCCINATE 100 MG TABLET.SA PO SCH (08:00)
[2020-07-29] MEDS: FOLIC ACID 0.4 MG TABLET PO SCH (08:00)
[2020-07-29] MEDS: THIAMINE HCL 100 MG TABLET PO SCH (08:00)
[2020-07-29] MEDS: GABAPENTIN 300 MG CAPSULE PO SCH (08:00)
[2020-07-29] MEDS: MULTIVITAMINS 1 CAP CAPSULE PO SCH (08:00)
[2020-07-29] MEDS: LORazepam 2 MG/ML DISP.SYRIN IV PRN (09:36)
[2020-07-29] MEDS ORDERED: GLYCERIN/PROPYLENE GLYCOL 150 DROP BTL EACHEYE PRN (14:04)
--- NOTE | 2020-07-29 17:56 | PN ---
Subjective - Date and Time Seen Date: 07/29/20 Time: 10:45 Subjective Narrative: Patient resting comfortably in bed this morning. Apparently he got pretty agitated about 1 hours ago and had a CIWA score of 9. He was given a dose of Ativan. He was completely oriented though drowsy when we saw him. Reviewed his notes aside from his agitation that he just had, he has been appropriate and his cognition has been at baseline for the last couple of days. He denies any symptoms at this time, no headache or anxiety. Feels well. Objective - Review of Systems Generalized/Overall Review: Reports: No Symptoms Reported EENTM: Reports: No Symptoms Reported Respiratory: Reports: No Symptoms Reported Cardiac: Reports: No Symptoms Reported Abdominal: Denies: Nausea, Vomiting Genitourinary Symptoms: Reports: No Symptoms Reported Musculoskeletal Complaints: Reports: No Symptoms Reported Neurological: Denies: Headache, Anxiety, Tremors Skin: Reports: No Symptoms Reported Endocrine: Reports: No Symptoms Reported - Vitals Vitals: Last Vital Signs Temp 36.6 C 07/29/20 14:45 Pulse 70 07/29/20 14:45 Resp 18 07/29/20 14:45 BP 109/59 07/29/20 14:45 Pulse Ox 96 07/29/20 14:45 - Exam Constitutional: Present: Alert, Oriented x3, Obese Respiratory: Present: lungs clear, normal breath sounds Cardiovascular/Chest: Present: regular rate, rhythm, no murmur Abdomen: Present: soft, nontender, nondistended Extremity: Present: no pedal edema Skin Exam: Present: normal color, warm/dry Appearance: Present: appropriate appearance, appropriate insight Eye contact: Present: cooperative, good eye contact Thoughts: Present: normal thought pattern, normal mood /affect Assessment/Plan Plan Narrative: Waiting for placement. He has been stable aside from some agitation, no other signs of withdrawal. Agitation is infrequent. Vital signs are stable, continue current treatment plan. - Problems/Diagnosis (1) Chronic alcoholism Problem: Acute (2) Wernicke encephalopathy Problem: Acute (3) Hypokalemia Problem: Acute (4) Jaundice Problem: Acute (5) Alcohol induced liver disorder Problem: Acute (6) Hypertension Problem: Chronic Qualifiers:
[2020-07-29] MEDS: ROSUVASTATIN CALCIUM 10 MG TABLET PO SCH (20:23)
[2020-07-30] MEDS: LEVOTHYROXINE SODIUM 50 MCG TABLET PO SCH (06:42)
[2020-07-30] MEDS: PANTOPRAZOLE SODIUM 20 MG TABLET.DR PO SCH ×2 (06:42→20:57)
[2020-07-30 06:45] LABS: Hematocrit 38.5 % (42.0-52.0); Hemoglobin 12.6 gm/dL (13.5-18.0); Mean Cell Volume 100.5 fl (78-100); Mean Corpuscular Hemoglobin 32.9 pg (27-31); Mean Corpuscular Hgb Conc 32.7 g/dl (32-36); Mean Platelet Volume 11.1 fl (8-11.3); Neutrophil # 1.7 K/mm3 (1.3-6.0); Neutrophil % 41.9 % (42-75.0); Platelet Count 85 K/mm3 (150-450); Red Blood Count 3.83 M/mm3 (4.7-6.0); Red Cell Distribution Width 14.3 % (11.5-14.0); White Blood Count 4.1 K/mm3 (4.0-10.5)
[2020-07-30 06:54] LABS: Albumin * 2.8 gm/dl (3.4-5.0); Anion Gap 15.4 mmol/L (6.8-13.8); BUN/Creatinine Ratio 7.3 (9.0-21.6); Bilirubin, Total 2.8 mg/dL (0.0-1.1); Ca. Corrected For Albumin 9.1 mg/dL (8.4-10.2); Calcium * 8.5 mg/dL (7.9-10.9); Carbon Dioxide 23.7 mmol/L (24-32.6); Potassium 4.1 mmol/L (3.4-4.6); Total Protein 7.5 gm/dL (6.2-8.2)
[2020-07-30] MEDS: FOLIC ACID 0.4 MG TABLET PO SCH (08:04)
[2020-07-30] MEDS: GABAPENTIN 300 MG CAPSULE PO SCH (08:04)
[2020-07-30] MEDS: METOPROLOL SUCCINATE 100 MG TABLET.SA PO SCH (08:05)
[2020-07-30] MEDS: THIAMINE HCL 100 MG TABLET PO SCH (08:05)
[2020-07-30] MEDS: MULTIVITAMINS 1 CAP CAPSULE PO SCH (08:05)
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
[2020-07-30] MEDS ORDERED: hydrOXYzine HCL 50 MG/ML VIAL IM PRN (10:54)
[2020-07-30] MEDS: SERTRALINE HCL 50 MG TABLET PO SCH (11:10)
[2020-07-30] MEDS: ROSUVASTATIN CALCIUM 10 MG TABLET PO SCH (20:57)
[2020-07-31] MEDS: PANTOPRAZOLE SODIUM 20 MG TABLET.DR PO SCH ×2 (06:47→23:10)
[2020-07-31] MEDS: LEVOTHYROXINE SODIUM 50 MCG TABLET PO SCH (06:47)
[2020-07-31] MEDS: GABAPENTIN 300 MG CAPSULE PO SCH (08:29)
[2020-07-31] MEDS: MULTIVITAMINS 1 CAP CAPSULE PO SCH (08:29)
[2020-07-31] MEDS: FOLIC ACID 0.4 MG TABLET PO SCH (08:29)
[2020-07-31] MEDS: METOPROLOL SUCCINATE 100 MG TABLET.SA PO SCH (08:30)
[2020-07-31] MEDS: THIAMINE HCL 100 MG TABLET PO SCH (08:30)
[2020-07-31] MEDS: SERTRALINE HCL 50 MG TABLET PO SCH (08:30)
[2020-07-31] MEDS ORDERED: ACETAMINOPHEN 325 MG TABLET PO PRN (11:06)
--- NOTE | 2020-07-31 15:11 | PN ---
Subjective - Date and Time Seen Date: 07/31/20 Time: 15:07 Subjective Narrative: I feel so much better, been up and walking with better balance. Objective Objective Narrative: 61-year-old male admitted for acute alcohol withdrawal, Acute alcohol induced liver injury, and dehydration was evaluated bedside this morning was found to be afebrile and in no acute distress. Patient patient is showing significant clinical improvement, he is more lucid and in a better mood. Physical therapist reports better balance and the patient walking without assistance. The patient has had no seizures and his tremulousness has resolved. He has maintained stable vitals and his labs have improved. Discharge planning is underway to a rehab facility where the patient can continue withdrawing from alcohol and continue his rehab. Once we secure a bed we will discharge him. - Review of Systems Generalized/Overall Review: Reports: No Symptoms Reported EENTM: Reports: No Symptoms Reported Respiratory: Reports: No Symptoms Reported Cardiac: Reports: No Symptoms Reported Abdominal: Reports: No Symptoms Reported Genitourinary Symptoms: Reports: No Symptoms Reported Musculoskeletal Complaints: Reports: No Symptoms Reported Neurological: Reports: No Symptoms Reported Skin: Reports: No Symptoms Reported Endocrine: Reports: No Symptoms Reported - Vitals Vitals: Last Vital Signs Temp 36.8 C 07/31/20 14:42 Pulse 62 07/31/20 14:42 Resp 16 07/31/20 14:42 BP 128/71 07/31/20 14:42 Pulse Ox 96 07/31/20 14:42 - Exam Constitutional: Present: Alert, Oriented x3, Cooperative, Well developed, No distress, Obese ENT Exam: Present: normal ENT inspection, hearing grossly normal Neck: Present: non-tender, full range of motion, supple, normal inspection, trachea midline Breasts: Present: Exam deferred, Nontender Respiratory: Present: chest non-tender, lungs clear, normal breath sounds, no respiratory distress, no accessory muscle use Cardiovascular/Chest: Present: normal peripheral pulses, regular rate, rhythm, no chest tenderness, no edema, no gallop, no JVD, no murmur, no rub Abdomen: Present: Normal bowel sounds, soft, nontender, nondistended, no rebound tenderness, no masses, obese /Rectal: Present: Exam deferred Extremity: Present: normal range of motion, non-tender, normal inspection, no pedal edema, no calf tenderness, normal capillary refill, pelvis stable Skin Exam: Present: normal color, warm/dry, no cyanosis Lymphatic: Present: no adenopathy Neurologic: Present: automatic winder operator II-XII nml as tested, no motor/sensory deficits, alert, normal mood/affect, oriented x 3 Appearance: Present: appropriate appearance, appropriate insight, neat, no memory impairment Eye contact: Present: cooperative, good eye contact, normal speech Thoughts: Present: normal thought pattern, no apparent hallucination Assessment/Plan Plan Narrative: We will repeat a CMP in the morning to reevaluate liver enzymes and electrolytes. - Problems/Diagnosis (1) Balance problem Problem: Acute (2) Alcohol withdrawal syndrome Problem: Acute (3) Thrombocytopenia Problem: Acute (4) Elevated lactic acid level Problem: Acute (5) Hyperbilirubinemia Problem: Acute (6) Hypertension Problem: Chronic Qualifiers: (7) Hyperlipidemia Problem: Chronic Qualifiers: (8) Elevated AST (SGOT) Problem: Acute (9) Morbid obesity due to excess calories Problem: Chronic (10) Hypokalemia Problem: Acute (11) Jaundice Problem: Resolved (12) Jaundice, hepatocellular Problem: Resolved (13) Alcohol induced liver disorder Problem: Acute (14) Wernicke encephalopathy Problem: Acute (15) Depression Problem: Chronic (16) Anxiety Problem: Acute
[2020-07-31] MEDS ORDERED: ONDANSETRON 4 MG TAB.RAPDIS PO ONE (22:45)
[2020-07-31] MEDS: ROSUVASTATIN CALCIUM 10 MG TABLET PO SCH (23:10)
[2020-08-01] MEDS: PANTOPRAZOLE SODIUM 20 MG TABLET.DR PO SCH (06:49)
[2020-08-01] MEDS: LEVOTHYROXINE SODIUM 50 MCG TABLET PO SCH (06:49)
[2020-08-01 07:07] LABS: Anion Gap 13.7 mmol/L (6.8-13.8); BUN/Creatinine Ratio 8.1 (9.0-21.6); Bilirubin, Total 2.8 mg/dL (0.0-1.1); Ca. Corrected For Albumin 9.3 mg/dL (8.4-10.2); Calcium * 8.8 mg/dL (7.9-10.9); Carbon Dioxide 22.3 mmol/L (24-32.6); Total Protein 8.1 gm/dL (6.2-8.2)
[2020-08-01] MEDS: GABAPENTIN 300 MG CAPSULE PO SCH (08:28)
[2020-08-01] MEDS: FOLIC ACID 0.4 MG TABLET PO SCH (08:29)
[2020-08-01] MEDS: SERTRALINE HCL 50 MG TABLET PO SCH (08:29)
[2020-08-01] MEDS: THIAMINE HCL 100 MG TABLET PO SCH (08:29)
[2020-08-01] MEDS: METOPROLOL SUCCINATE 100 MG TABLET.SA PO SCH (08:29)
[2020-08-01] MEDS: MULTIVITAMINS 1 CAP CAPSULE PO SCH (08:29)
--- NOTE | 2020-08-01 12:28 | DS ---
(1) Balance problem Problem: Acute (2) Alcohol withdrawal syndrome Problem: Acute (3) Thrombocytopenia Problem: Acute (4) Elevated lactic acid level Problem: Acute (5) Hyperbilirubinemia Problem: Acute (6) Hypertension Problem: Chronic Qualifiers: (7) Hyperlipidemia Problem: Chronic Qualifiers: (8) Elevated AST (SGOT) Problem: Acute (9) Morbid obesity due to excess calories Problem: Chronic (10) Hypokalemia Problem: Acute (11) Jaundice Problem: Resolved (12) Jaundice, hepatocellular Problem: Resolved (13) Alcohol induced liver disorder Problem: Acute (14) Wernicke encephalopathy Problem: Acute (15) Depression Problem: Chronic (16) Anxiety Problem: Acute Date of Discharge:: 08/01/20 Hospital Course: 60-year-old male was admitted to [facility] for alcohol withdrawal syndrome and apparent Warnicke syndrome secondary to chronic alcoholism. The patient has responded favorably to the intrahospital care. He has not had any seizures in his neurological function has returned to baseline. His anxiety has been controlled with anxiolytics and he reports improvement compared to when he arrived. Given these findings decision to discharge patient home after counseling him about his drinking was made. Follow-up appointment has been set up with his primary care provider for further evaluation and follow-up. In the meantime he was instructed to continue taking levothyroxine to manage his elevated TSH and was provided with additional doses of a mild anxiolytic to manage anxiety, and was ordered to undergo outpatient physical therapy to address weakness in his lower extremities and poor balance. The patient agreed to the plan and said he is ready to go home. Therefore we will discharge him today. Procedures Performed: none Results and Findings: Lab Pending Results 07/22/20 15:58: WBC 4.3, RBC 4.03 L, Hgb 13.1 L, Hct 39.9 L, MCV 99.0, MCH 32.5 H, MCHC 32.8, RDW 14.5 H, Plt Count 22 L* D, MPV 11.6 H, Immature Gran % (Auto) 0.20, Immature Gran # (Auto) 0.01, Neutrophils % 68.2, Lymphocytes % 21.4, Monocytes % 8.8, Eosinophils % 0.2, Basophils % 1.2 H, Nucleated RBC % 0.0, Neutrophils # 2.9, Lymphocytes # 0.92 L, Monocytes # 0.4, Eosinophils # 0.0, Absolute Basophils 0.1 07/22/20 15:58: Sodium 135, Plasma Sodium 135, Potassium 3.4, Chloride 96 L, Carbon Dioxide 17.2 L, Anion Gap 25.2 H, BUN 4 L, Creatinine 1.19, Est GFR (Non- Af Amer) 66 D, BUN/Creatinine Ratio 3.4 L, Random Glucose 109, Calcium 8.6, Calcium Adj for Albumin 8.8, Magnesium 1.2, Total Bilirubin 5.1 H, AST 166 H, ALT 43, Alkaline Phosphatase 229 H, Troponin I Less than 0.017, Total Protein 8.5 H, Albumin 3.3 L, Lipase 82, TSH 9.282 H, Acetaminophen Less than 0.2 L, Ethyl Alcohol Less than 3.0 07/22/20 15:58: Lactic Acid, Venous 9.3 H* 07/22/20 15:58: Ammonia 48.0 H 07/22/20 15:58: PT 16.4 H, INR (Anticoag Therapy) 1.61 H, PTT ([place]) 31.7 07/22/20 15:58: Creatine Kinase 130 07/22/20 15:58: Free T4 1.42 07/22/20 16:59: SARS-CoV-2 (PCR) Not detected 07/22/20 18:00: Urine Color Dark yellow, Urine Appearance Slightly cloudy, Urine pH 8.5, Ur Specific [place] 1.020, Urine Protein 30 H, Urine Glucose (UA) 100 H, Urine Ketones 5, Urine Blood 10 H, Urine Nitrate Positive H, Urine Bilirubin 3 H, Urine Urobilinogen >=8.0 H, Ur Leukocyte Esterase Negative, Urine RBC 0-5, Urine WBC 0-5, Ur Epithelial Cells 5-10 H, Ur Renal Epithelial Cell Few - 1+ H, Urine Bacteria Trace, Urine Culture Comments Culture to follow 07/22/20 18:00: Urine Opiates Screen Negative, Barbiturate Screen Negative, Ur Phencyclidine Scrn Negative, Urine Amphetamine Negative, U Benzodiazepines Scrn Negative, Urine Cocaine Screen Negative, Urine Marijuana (THC) Negative 07/22/20 18:40: Lactic Acid, Venous 2.6 H* 07/23/20 06:14: Sodium 132, Plasma Sodium 132, Potassium 3.0 L, Chloride 99, Carbon Dioxide 23.3 L, Anion Gap 12.7, BUN 3 L, Creatinine 0.78, Est GFR (Non-Af Amer) 107 D, BUN/Creatinine Ratio 3.8 L, Random Glucose 120 H, Calcium 8.1, Calcium Adj for Albumin 8.7, Magnesium 1.3, Total Bilirubin 5.8 H, AST 152 H, ALT 39, Alkaline Phosphatase 208 H, Total Protein 7.8, Albumin 2.9 L 07/23/20 06:14: WBC 3.6 L, RBC 3.87 L, Hgb 12.7 L, Hct 37.9 L, MCV 97.9, MCH 32.8 H, MCHC 33.5, RDW 14.3 H, Plt Count 22 L*, MPV 12.2 H, Immature Gran % (Aut o) 0.00 L, Immature Gran # (Auto) 0.00, Neutrophils % 58.4, Lymphocytes % 30.9, Monocytes % 9.1 H, Eosinophils % 0.8, Basophils % 0.8, Nucleated RBC % 0.0, Neutrophils # 2.1, Lymphocytes # 1.12 L, Monocytes # 0.3, Eosinophils # 0.0, Absolute Basophils 0.0 07/24/20 06:16: Sodium 133, Plasma Sodium 133, Potassium 3.2 L, Chloride 99, Carbon Dioxide 22.4 L, Anion Gap 14.8 H, BUN 5 L D, Creatinine 0.74, Est GFR (Non-Af Amer) 114, BUN/Creatinine Ratio 6.8 L, Random Glucose 87, Calcium 8.4, Calcium Adj for Albumin 9.0, Total Bilirubin 6.6 H, AST 130 H, ALT 36, Alkaline Phosphatase 194 H, Total Protein 7.7, Albumin 2.8 L 07/25/20 08:41: WBC 3.7 L, RBC 3.85 L, Hgb 12.9 L, Hct 38.5 L, MCV 100.0, MCH 33.5 H, MCHC 33.5, RDW 14.6 H, Plt Count 38 L, MPV 12.3 H, Immature Gran % (Auto) 0.00 L, Immature Gran # (Auto) 0.00, Neutrophils % 54.1, Lymphocytes % 32.9, Monocytes % 9.2 H, Eosinophils % 2.4, Basophils % 1.4 H, Nucleated RBC % 0.0, Neutrophils # 2.0, Lymphocytes # 1.21 L, Monocytes # 0.3, Eosinophils # 0.1, Absolute Basophils 0.1 07/25/20 08:41: Sodium 134, Plasma Sodium 134, Potassium 3.4, Chloride 101, Carbon Dioxide 21.1 L, Anion Gap 15.3 H, BUN 5 L, Creatinine 0.70, Est GFR (Non- Af Amer) 121, BUN/Creatinine Ratio 7.1 L, Random Glucose 97, Calcium 8.4, Calcium Adj for Albumin 9.0, Total Bilirubin 6.2 H, AST 123 H, ALT 39, Alkaline Phosphatase 192 H, Total Protein 7.6, Albumin 2.8 L 07/26/20 06:21: WBC 3.7 L, RBC 3.79 L, Hgb 12.6 L, Hct 37.8 L, MCV 99.7, MCH 33.2 H, MCHC 33.3, RDW 14.5 H, Plt Count 47 L, MPV 12.3 H, Immature Gran % (Auto) 0.30, Immature Gran # (Auto) 0.01, Neutrophils % 56.6, Lymphocytes % 29.3, Monocytes % 10.8 H, Eosinophils % 1.9, Basophils % 1.1 H, Nucleated RBC % 0.0, Neutrophils # 2.1, Lymphocytes # 1.08 L, Monocytes # 0.4, Eosinophils # 0.1, Absolute Basophils 0.0 07/26/20 06:21: Sodium 132, Plasma Sodium 132, Potassium 3.5, Chloride 100, Carbon Dioxide 20.4 L, Anion Gap 15.1 H, BUN 6, Creatinine 0.70, Est GFR (Non-Af Amer) 121, BUN/Creatinine Ratio 8.6 L, Random Glucose 98, Calcium 8.5, Calcium Adj for Albumin 9.2, Total Bilirubin 5.0 H, AST 111 H, ALT 43, Alkaline Phosphatase 176 H, Total Protein 7.4, Albumin 2.7 L 07/30/20 06:15: WBC 4.1, RBC 3.83 L, Hgb 12.6 L, Hct 38.5 L, MCV 100.5 H, MCH 3 2.9 H, MCHC 32.7, RDW 14.3 H, Plt Count 85 L, MPV 11.1, Immature Gran % (Auto) 0.20, Immature Gran # (Auto) 0.01, Neutrophils % 41.9 L, Lymphocytes % 36.8, Monocytes % 17.4 H, Eosinophils % 2.2, Basophils % 1.5 H, Nucleated RBC % 0.0, Neutrophils # 1.7, Lymphocytes # 1.50, Monocytes # 0.7, Eosinophils # 0.1, Absolute Basophils 0.1 07/30/20 06:15: Sodium 138, Plasma Sodium 138, Potassium 4.1, Chloride 103, Carbon Dioxide 23.7 L, Anion Gap 15.4 H, BUN 6, Creatinine 0.82, Est GFR (Non-Af Amer) 101, BUN/Creatinine Ratio 7.3 L, Random Glucose 95, Calcium 8.5, Calcium Adj for Albumin 9.1, Total Bilirubin 2.8 H, AST 100 H, ALT 51, Alkaline Phosphatase 159, Total Protein 7.5, Albumin 2.8 L 08/01/20 06:15: Sodium 135, Plasma Sodium 135, Potassium 4.0, Chloride 103, Carbon Dioxide 22.3 L, Anion Gap 13.7, BUN 6, Creatinine 0.74, Est GFR (Non-Af Amer) 114, BUN/Creatinine Ratio 8.1 L, Random Glucose 101, Calcium 8.8, Calcium Adj for Albumin 9.3, Total Bilirubin 2.8 H, AST 95 H, ALT 53, Alkaline Phosphatase 151, Total Protein 8.1, Albumin 3.0 L Discharge Location: Home Disposition: Home self-care Condition: Fair Discharge Activity: Activity as tolerated Discharge Diet: General/regular food Referrals: Bethany Henson FNP [Primary Care Provider] - Additional Patient Instructions (free text): Follow up office visit with Bethany Hemphill on ThursdayAugust 08 at 1:00pm Prescriptions (Any new or edited meds): Folic Acid 0.4 mg PO DAILY #30 tab Transmission Status: Pending to [facility] Hydroxyzine Pamoate 50 mg PO Q6H PRN #30 cap PRN Reason: Anxiety Transmission Status: Pending to [facility] Levothyroxine Sodium [Synthroid] 50 mcg PO DAILY@0700 #30 tab Transmission Status: Pending to [facility] Complete Home Medications List: Complete Home Medication List: Multivitamins [Multivitamin Ashley] 1 cap PO DAILY 01/30/16 atorvastatin 20 mg tablet 20 mg PO DAILY #90 tab 08/24/18 metoprolol succinate 100 mg tablet,extended release 24 hr 100 mg PO DAILY #90 tab 08/24/18 azelastine 0.05 % eye drops 1 drp OP BID PRN #6 ml 12/02/18 Aspirin [Aspirin Chewable] 81 mg PO DAILY 07/22/20 Gabapentin 300 mg PO DAILY 07/22/20 Folic Acid 0.4 mg PO DAILY #30 tab 08/01/20 Hydroxyzine Pamoate 50 mg PO Q6H PRN #30 cap 08/01/20 Levothyroxine Sodium [Synthroid] 50 mcg PO DAILY@0700 #30 tab 08/01/20 Forms: Patient Portal Registration
[2020-08-01 14:14] VITALS: BP 106/72
== END 2020-08-01 13:46 | disposition home or self-care (01) | DRG 897 ==
LOC: MS 15:17 → ER 15:17 → MS 19:21
PROVIDERS: ADMIT Family Medicine; ATTEND Family Medicine
DX: I10 Essential (primary) hypertension; E87.6 Hypokalemia; Z68.35 Body mass index [BMI] 35.0-35.9, adult; F10.231 Alcohol dependence with withdrawal delirium; E66.01 Morbid (severe) obesity due to excess calories; R17 Unspecified jaundice; E86.0 Dehydration; E51.2 Wernicke's encephalopathy; R26.89 Other abnormalities of gait and mobility; G25.2 Other specified forms of tremor; D69.6 Thrombocytopenia, unspecified; F41.8 Other specified anxiety disorders